=== PATIENT | male | born 1965 | race Caucasian/White ===

== ENCOUNTER 2016-08-19 18:19 | Emergency (ER) | payer BC ==
--- NOTE | 2016-08-19 21:56 | DIAGNOSTIC IMAGING REPORT ---
PROCEDURE: CT ABDOMEN/PELVIS W/O CONTRAST INDICATION: HEMATURIA, initial encounter TECHNIQUE: Noncontrast axial images were obtained of the entire abdomen and pelvis with sagittal and coronal reformations. COMPARISON: None. FINDINGS: ABDOMEN: Mild bibasilar scarring. Heart size is normal. Hepatomegaly (23.6 cm) with contour irregularity. There are a few 5 mm hypodense lesions, indeterminate. Mild splenomegaly (13.7 cm). Gallbladder, pancreas and adrenal glands are normal. Mild dilation of the right renal collecting system and ureter, possibly due to a recently passed calculus. Left kidney and ureter are unremarkable. Mild atherosclerosis of the aorta. Moderate stool. PELVIS: Normal appendix. Normal prostate and bladder. No inflammatory changes or free fluid. Mild degenerative changes of the spine IMPRESSION: 1. Mild dilation of the right renal collecting system and ureter, possibly a recently passed calculus. 2. Hepatosplenomegaly with liver contour irregularity suggestive of cirrhosis 3. Results discussed with Jaden Chávez All CT scans at this facility use dose modulation, iterative reconstruction, and/or weight-based dosing when appropriate to reduce radiation dose to as low as reasonably achievable.
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
--- NOTE | 2016-08-19 22:26 | ED ORDER SUMMARY ---
..... Patient: AUSTIN SAHNI OrderSheet [facility] VisitID: [id number] [place] [address] 51y, M Registration Date/Time: 08/19/2016 ORDER SHEET Weight: 136.0 kg (stated) Allergies: No Known Drug Allergy GENERAL ORDERS: UA-Culture if indicated Urgent (19:02 08/19/2016 EKoroleva P.A.-C) (Ack 19:05 NHouse ER Tech1) (20:27 JQuivey R.N.) CBC w Diff Urgent (19:44 08/19/2016 EKoroleva P.A.-C) (Ack 19:45 NHouse ER Tech1) (20:12 NHouse ER Tech1) CMP Urgent (19:44 08/19/2016 EKoroleva P.A.-C) (Ack 19:45 NHouse ER Tech1) (20:12 NHouse ER Tech1) CT Abd/Pel wo Cont Urgent (21:08 08/19/2016 EKoroleva P.A.-C) (Ack 21:10 NHouse ER Tech1) (21:48 JQuivey R.N.) Culture, Urine (Urine, Clean Catch) Urgent (21:57 08/19/2016 EKoroleva P.A.-C) (22:06 NHouse ER Tech1) POC Glucose (22:24 08/19/2016 EKoroleva P.A.-C) (22:28 JQuivey R.N.) MEDICATION ORDERS: Regular Insulin Subcut 10 units (HIGH ALERT MEDICATION, NOW) (21:39 08/19/2016 EKoroleva P.A.-C) (Ack 21:41 JQuivey R.N.) (21:48 JQuivey R.N.) IV FLUIDS: IV NS : initial bolus 1000 mL (1000 mL/hr), then 1000 mL/hr for X1 (NOW); Dimitri (19:20 08/19/2016 EKoroleva P.A.-C) (19:39 JQuivey R.N.) Toradol IV 30 mg (NOW) (20:17 08/19/2016 Denver Fernandez) (Ack 20:18 JQuivey R.N.) (20:28 JQuivey R.N.) Dilaudid IV 1 mg (HIGH ALERT MEDICATION, NOW) (20:17 08/19/2016 Denver Fernandez) (Ack 20:18 JQuivey R.N.) (20:28 JQuivey R.N.) ORDER SHEET NOTES: [Electronically signed by Marek Suggs R.N. (22:45 08/19/2016)] [Electronically signed by Janell Chávez P.A.-C (22:49 08/19/2016)] [Electronically locked/signed by Marek Suggs R.N. (22:45 08/19/2016)]
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
--- NOTE | 2016-08-19 22:26 | ED ORDER SUMMARY ---
..... Patient: AUSTIN SAHNI OrderSheet [facility] VisitID: [id number] [place] [address] 51y, M Registration Date/Time: 08/19/2016 ORDER SHEET Weight: 136.0 kg (stated) Allergies: No Known Drug Allergy GENERAL ORDERS: UA-Culture if indicated Urgent (19:02 08/19/2016 EKoroleva P.A.-C) (Ack 19:05 NHouse ER Tech1) (20:27 JQuivey R.N.) CBC w Diff Urgent (19:44 08/19/2016 EKoroleva P.A.-C) (Ack 19:45 NHouse ER Tech1) (20:12 NHouse ER Tech1) CMP Urgent (19:44 08/19/2016 EKoroleva P.A.-C) (Ack 19:45 NHouse ER Tech1) (20:12 NHouse ER Tech1) CT Abd/Pel wo Cont Urgent (21:08 08/19/2016 EKoroleva P.A.-C) (Ack 21:10 NHouse ER Tech1) (21:48 JQuivey R.N.) Culture, Urine (Urine, Clean Catch) Urgent (21:57 08/19/2016 EKoroleva P.A.-C) (22:06 NHouse ER Tech1) POC Glucose (22:24 08/19/2016 EKoroleva P.A.-C) (22:28 JQuivey R.N.) MEDICATION ORDERS: Regular Insulin Subcut 10 units (HIGH ALERT MEDICATION, NOW) (21:39 08/19/2016 EKoroleva P.A.-C) (Ack 21:41 JQuivey R.N.) (21:48 JQuivey R.N.) IV FLUIDS: IV NS : initial bolus 1000 mL (1000 mL/hr), then 1000 mL/hr for X1 (NOW); Dimitri (19:20 08/19/2016 EKoroleva P.A.-C) (19:39 JQuivey R.N.) Toradol IV 30 mg (NOW) (20:17 08/19/2016 Denver Fernandez) (Ack 20:18 JQuivey R.N.) (20:28 JQuivey R.N.) Dilaudid IV 1 mg (HIGH ALERT MEDICATION, NOW) (20:17 08/19/2016 Denver Fernandez) (Ack 20:18 JQuivey R.N.) (20:28 JQuivey R.N.) ORDER SHEET NOTES: [Electronically signed by Marek Suggs R.N. (22:45 08/19/2016)] [Electronically signed by Janell Chávez P.A.-C (22:49 08/19/2016)] [Electronically locked/signed by Marek Suggs R.N. (22:45 08/19/2016)]
--- NOTE | 2016-08-19 22:49 | ED MAR SUMMARY ---
..... Medication Administration Record [facility] [address] [place] [address] Patient: AUSTIN SAHNI Visit ID: [id number] 51y, M Weight: 136.0 kg Height/Length: 72 in BMI: 40.7 ALLERGIES: No Known Drug Allergy Start 19:36 08/19/2016 Marek Suggs R.NBenjamin, Stop 22:37 08/19/2016 Marek Suggs R.N. Medication Administered: IV NS (SALINE), Dose: IV Fluids over 1 hour(s), Rate: 1000 mL/hr, Dispensed: 1000 mL bag, Site: #1 right hand. Medication Ordered: IV NS : initial bolus 1000 mL (1000 mL/hr), then 1000 mL/hr for X1 (NOW); Dimitri. Given 20:23 08/19/2016 Marek Suggs R.N. Medication Administered: DILAUDID [IVP] (HYDROMORPHONE HCL PF), Dose: 1 mg IVP over 2 minute(s), Site: #1 right hand. Medication Ordered: Dilaudid IV 1 mg (HIGH ALERT MEDICATION, NOW). Given 20:26 08/19/2016 Marek Suggs R.NBenjamin Medication Administered: TORADOL [IVP], Dose: 30 mg IVP over 2 minute(s), Site: #1 right hand. Medication Ordered: Toradol IV 30 mg (NOW). Given 21:48 08/19/2016 Marek Suggs R.NBenjamin Medication Administered: REGULAR INSULIN [SUBCUTANEOUS], Dose: 10 unit Subcutaneous. Medication Ordered: Regular Insulin Subcut 10 units (HIGH ALERT MEDICATION, NOW).
--- NOTE | 2016-08-19 22:49 | ED DISCHARGE INSTRUCTIONS ---
Patient: AUSTIN SAHNI General Instructions [facility] VisitID: [id number] [place] [address] 51y, M Registration Date/Time: 08/19/2016 Gross hematuria INSTRUCTIONS (urology: [phone] warm compressions to abd). Warnings: Further evaluation is necessary. Prescription Medications: Hydrocodone/APAP 7.5mg / 325mg: take 1 orally every 6 hours as needed for pain. Dispense twenty (20). No refill. Pyridium 100 mg: take 1 orally every 8 hours for 3 days as needed for urinary problems. Dispense ten (10). No refill. Substitution is permissible. Follow-up: Follow up with a specialist. ADDITIONAL INFORMATION Blood In The Urine Blood in the urine ("hematuria") has many possible causes. If it occurs after an injury (such as a car accident or fall), it is most often a sign of bruising to the kidney or bladder. Common medical causes of blood in the urine include urinary tract infection, kidney stone, inflammation, tumors, or certain other diseases of the kidney or bladder. Menstruation can cause blood to appear in the urine sample, although it is not coming from the urinary tract. If only a trace amount of blood is present, it will show up on the urine test, even though the urine may be yellow and not pink or red. This may occur with any of the above conditions, as well as heavy exercise or high fever. In this case, your doctor may want to repeat the urine test on another day. This will show if the blood is still present. If so, then other tests can be done to find out the cause. Home Care: If your urine does not appear bloody (pink, brown or red) then you do not need to restrict your activity in any way. If you can see blood in your urine, rest and avoid heavy exertion until your next exam. Do not use aspirin or anti-inflammatory medicine like ibuprofen (Motrin, Advil) or naproxen (Naprosyn, Aleve). These thin the blood and may increase bleeding. Follow Up with your doctor or as advised by our staff. If you were injured and had blood in your urine, you should have a repeat urine test in 1-2 days. Contact your doctor or return to this facility for this test. [NOTE: A radiologist will review any X-rays that were taken. We will notify you of any new findings that may affect your care.] Get Prompt Medical Attention if any of the following occur: Bright red blood or blood clots in the urine (if a new symptom) Weakness, dizziness or fainting New groin, abdominal or back pain Fever of 100.4F (38C) or higher, or as directed by your healthcare provider Repeated vomiting Bleeding from nose, gums or easy bruising Hydrocodone Bitartrate, Acetaminophen Oral tablet What is this medicine? ACETAMINOPHEN; HYDROCODONE (a set a MELISSA claudine fen; ina droe KOE done) is a pain reliever. It is used to treat mild to moderate pain. How should I use this medicine? Take this medicine by mouth. Swallow it with a full glass of water. Follow the directions on the prescription label. If the medicine upsets your stomach, take the medicine with food or milk. Do not take more than you are told to take. Talk to your regrinder regarding the use of this medicine in children. This medicine is not approved for use in children. What side effects may I notice from receiving this medicine? Side effects that you should report to your doctor or health career technology teacher as soon as possible: allergic reactions like skin rash, itching or hives, swelling of the face, lips, or tongue breathing problems confusion feeling faint or lightheaded, falls stomach pain yellowing of the eyes or skin Side effects that usually do not require medical attention (report to your doctor or health career technology teacher if they continue or are bothersome): nausea, vomiting stomach upset What may interact with this medicine? alcohol antihistamines isoniazid medicines for depression, anxiety, or psychotic disturbances medicines for sleep muscle relaxants naltrexone narcotic medicines (opiates) for pain phenobarbital ritonavir tramadol What if I miss a dose? If you miss a dose, take it as soon as you can. If it is almost time for your next dose, take only that dose. Do not take double or extra doses. Where should I keep my medicine? Keep out of the reach of children. This medicine can be abused. Keep your medicine in a safe place to protect it from theft. Do not share this medicine with anyone. Selling or giving away this medicine is dangerous and against the law. Store at room temperature between 15 and 30 degrees C (59 and 86 degrees F). Protect from light. Keep container tightly closed. Throw away any unused medicine after the expiration date. Discard unused medicine and used packaging carefully. Pets and children can be harmed if they find used or lost packages. What should I tell my health care provider before I take this medicine? They need to know if you have any of these conditions: brain tumor Crohn's disease, inflammatory bowel disease, or ulcerative colitis drink more than 3 alcohol-containing drinks per day drug abuse or addiction head injury heart or circulation problems kidney disease or problems going to the bathroom liver disease lung disease, asthma, or breathing problems an unusual or allergic reaction to acetaminophen, hydrocodone, other opioid analgesics, other medicines, foods, dyes, or preservatives or trying to get breast-feeding What should I watch for while using this medicine? Tell your doctor or health career technology teacher if your pain does not go away, if it gets worse, or if you have new or a different type of pain. You may develop tolerance to the medicine. Tolerance means that you will need a higher dose of the medicine for pain relief. Tolerance is normal and is expected if you take the medicine for a long time. Do not suddenly stop taking your medicine because you may develop a severe reaction. Your body becomes used to the medicine. This does NOT mean you are addicted. Addiction is a behavior related to getting and using a drug for a non-medical reason. If you have pain, you have a medical reason to take pain medicine. Your doctor will tell you how much medicine to take. If your doctor wants you to stop the medicine, the dose will be slowly lowered over time to avoid any side effects. You may get drowsy or dizzy when you first start taking the medicine or change doses. Do not drive, use machinery, or do anything that may be dangerous until you know how the medicine affects you. Stand or sit up slowly. There are different types of narcotic medicines (opiates) for pain. If you take more than one type at the same time, you may have more side effects. Give your health care provider a list of all medicines you use. Your doctor will tell you how much medicine to take. Do not take more medicine than directed. Call emergency for help if you have problems breathing. The medicine will cause constipation. Try to have a bowel movement at least every 2 to 3 days. If you do not have a bowel movement for 3 days, call your doctor or health career technology teacher. Too much acetaminophen can be very dangerous. Do not take Tylenol (acetaminophen) or medicines that contain acetaminophen with this medicine. Many non-prescription medicines contain acetaminophen. Always read the labels carefully. Phenazopyridine Hydrochloride Oral tablet What is this medicine? PHENAZOPYRIDINE (fen az oh PEER i denis) is a pain reliever. It is used to stop the pain, burning, or discomfort caused by infection or irritation of the urinary tract. This medicine is not an antibiotic. It will not cure a urinary tract infection. How should I use this medicine? Take this medicine by mouth with a glass of water. Follow the directions on the prescription label. Take after meals. Take your doses at regular intervals. Do not take your medicine more often than directed. Do not skip doses or stop your medicine early even if you feel better. Do not stop taking except on your doctor's advice. Talk to your regrinder regarding the use of this medicine in children. Special care may be needed. What side effects may I notice from receiving this medicine? Side effects that you should report to your doctor or health career technology teacher as soon as possible: allergic reactions like skin rash, itching or hives, swelling of the face, lips, or tongue blue or purple color of the skin difficulty breathing fever less urine unusual bleeding, bruising unusual tired, weak vomiting yellowing of the eyes or skin Side effects that usually do not require medical attention (report to your doctor or health career technology teacher if they continue or are bothersome): dark urine headache stomach upset What may interact with this medicine? Interactions are not expected. What if I miss a dose? If you miss a dose, take it as soon as you can. If it is almost time for your next dose, take only that dose. Do not take double or extra doses. Where should I keep my medicine? Keep out of the reach of children. Store at room temperature between 15 and 30 degrees C (59 and 86 degrees F). Protect from light and moisture. Throw away any unused medicine after the expiration date. What should I tell my health care provider before I take this medicine? They need to know if you have any of these conditions: [id number] dehydrogenase (G6PD) deficiency kidney disease an unusual or allergic reaction to phenazopyridine, other medicines, foods, dyes, or preservatives or trying to get breast-feeding What should I watch for while using this medicine? Tell your doctor or health career technology teacher if your symptoms do not improve or if they get worse. This medicine colors body fluids red. This effect is harmless and will go away after you are done taking the medicine. It will change urine to an dark orange or red color. The red color may stain clothing. Soft contact lenses may become permanently stained. It is best not to wear soft contact lenses while taking this medicine. If you are diabetic you may get a false positive result for sugar in your urine. Talk to your health care provider. You have been given the following additional information: Hematuria Hydrocodone Bitartrate, Acetaminophen Oral tablet Phenazopyridine Hydrochloride Oral tablet (Electronically signed by Janell Chávez P.A.-C 08/19/2016 22:49)
--- NOTE | 2016-08-19 22:49 | ED MAR SUMMARY ---
..... Medication Administration Record [facility] [address] [place] [address] Patient: AUSTIN SAHNI Visit ID: [id number] 51y, M Weight: 136.0 kg Height/Length: 72 in BMI: 40.7 ALLERGIES: No Known Drug Allergy Start 19:36 08/19/2016 Marek Suggs R.NBenjamin, Stop 22:37 08/19/2016 Marek Suggs R.N. Medication Administered: IV NS (SALINE), Dose: IV Fluids over 1 hour(s), Rate: 1000 mL/hr, Dispensed: 1000 mL bag, Site: #1 right hand. Medication Ordered: IV NS : initial bolus 1000 mL (1000 mL/hr), then 1000 mL/hr for X1 (NOW); Dimitri. Given 20:23 08/19/2016 Marek Suggs R.N. Medication Administered: DILAUDID [IVP] (HYDROMORPHONE HCL PF), Dose: 1 mg IVP over 2 minute(s), Site: #1 right hand. Medication Ordered: Dilaudid IV 1 mg (HIGH ALERT MEDICATION, NOW). Given 20:26 08/19/2016 Marek Suggs R.NBenjamin Medication Administered: TORADOL [IVP], Dose: 30 mg IVP over 2 minute(s), Site: #1 right hand. Medication Ordered: Toradol IV 30 mg (NOW). Given 21:48 08/19/2016 Marek Suggs R.NBenjamin Medication Administered: REGULAR INSULIN [SUBCUTANEOUS], Dose: 10 unit Subcutaneous. Medication Ordered: Regular Insulin Subcut 10 units (HIGH ALERT MEDICATION, NOW).
--- NOTE | 2016-08-19 22:49 | ED MED RECONCILIATION SUMMARY ---
Patient: AUSTIN SAHNI Medication Reconciliation Report [facility] VisitID: [id number] [address] [place] [address] 51y, M Registration Date/Time: 08/19/2016 Weight: 136.0 kg Height/Length: 72 in. BMI: 40.7 ALLERGIES: No Known Drug Allergy The patient's Home Medications are listed below: THE FOLLOWING MEDICATIONS NEED TO BE RECONCILED: Atorvastatin Calcium Oral (20 mg), daily Fenofibrate Oral (160 mg), daily Gabapentin Oral (300 mg) 1-4 caps, at bedtime Lisinopril Oral 40 mg, daily Naproxen Oral 500 mg, 2x a day Percocet Oral, PRN Tamsulosin HCl Oral 0.4 mg, daily The source(s) of the original Home Medication information: patient's pill bottles The following Medications were given to the patient in the Emergency Department: IV NS IV Fluids bolus 0, then 1000 mL/hr, administered: 08/19/2016 7:36:00 PM Dilaudid [IVP] IVP 1 mg, administered: 08/19/2016 8:23:00 PM Toradol [IVP] IVP 30 mg, administered: 08/19/2016 8:26:00 PM Regular Insulin [Subcutaneous] Subcutaneous 10 unit, administered: 08/19/2016 9:48:00 PM The following Medications were prescribed to the patient: Hydrocodone/APAP 7.5mg / 325mg: take 1 orally every 6 hours as needed for pain. Dispense twenty (20). No refill. -- Janell Chávez P.ASylvain Pyridium 100 mg: take 1 orally every 8 hours for 3 days as needed for urinary problems. Dispense ten (10). No refill. Substitution is permissible. -- Janell Chávez P.ABenjamin-Timothy
--- NOTE | 2016-08-19 22:49 | ED MED RECONCILIATION SUMMARY ---
Patient: AUSTIN SAHNI Medication Reconciliation Report [facility] VisitID: [id number] [address] [place] [address] 51y, M Registration Date/Time: 08/19/2016 Weight: 136.0 kg Height/Length: 72 in. BMI: 40.7 ALLERGIES: No Known Drug Allergy The patient's Home Medications are listed below: THE FOLLOWING MEDICATIONS NEED TO BE RECONCILED: Atorvastatin Calcium Oral (20 mg), daily Fenofibrate Oral (160 mg), daily Gabapentin Oral (300 mg) 1-4 caps, at bedtime Lisinopril Oral 40 mg, daily Naproxen Oral 500 mg, 2x a day Percocet Oral, PRN Tamsulosin HCl Oral 0.4 mg, daily The source(s) of the original Home Medication information: patient's pill bottles The following Medications were given to the patient in the Emergency Department: IV NS IV Fluids bolus 0, then 1000 mL/hr, administered: 08/19/2016 7:36:00 PM Dilaudid [IVP] IVP 1 mg, administered: 08/19/2016 8:23:00 PM Toradol [IVP] IVP 30 mg, administered: 08/19/2016 8:26:00 PM Regular Insulin [Subcutaneous] Subcutaneous 10 unit, administered: 08/19/2016 9:48:00 PM The following Medications were prescribed to the patient: Hydrocodone/APAP 7.5mg / 325mg: take 1 orally every 6 hours as needed for pain. Dispense twenty (20). No refill. -- Janell Chávez P.ASylvain Pyridium 100 mg: take 1 orally every 8 hours for 3 days as needed for urinary problems. Dispense ten (10). No refill. Substitution is permissible. -- Janell Chávez P.ABenjamin-Timothy
--- NOTE | 2016-08-19 22:49 | ED DISCHARGE INSTRUCTIONS ---
Patient: AUSTIN SAHNI General Instructions [facility] VisitID: [id number] [place] [address] 51y, M Registration Date/Time: 08/19/2016 Gross hematuria INSTRUCTIONS (urology: [phone] warm compressions to abd). Warnings: Further evaluation is necessary. Prescription Medications: Hydrocodone/APAP 7.5mg / 325mg: take 1 orally every 6 hours as needed for pain. Dispense twenty (20). No refill. Pyridium 100 mg: take 1 orally every 8 hours for 3 days as needed for urinary problems. Dispense ten (10). No refill. Substitution is permissible. Follow-up: Follow up with a specialist. ADDITIONAL INFORMATION Blood In The Urine Blood in the urine ("hematuria") has many possible causes. If it occurs after an injury (such as a car accident or fall), it is most often a sign of bruising to the kidney or bladder. Common medical causes of blood in the urine include urinary tract infection, kidney stone, inflammation, tumors, or certain other diseases of the kidney or bladder. Menstruation can cause blood to appear in the urine sample, although it is not coming from the urinary tract. If only a trace amount of blood is present, it will show up on the urine test, even though the urine may be yellow and not pink or red. This may occur with any of the above conditions, as well as heavy exercise or high fever. In this case, your doctor may want to repeat the urine test on another day. This will show if the blood is still present. If so, then other tests can be done to find out the cause. Home Care: If your urine does not appear bloody (pink, brown or red) then you do not need to restrict your activity in any way. If you can see blood in your urine, rest and avoid heavy exertion until your next exam. Do not use aspirin or anti-inflammatory medicine like ibuprofen (Motrin, Advil) or naproxen (Naprosyn, Aleve). These thin the blood and may increase bleeding. Follow Up with your doctor or as advised by our staff. If you were injured and had blood in your urine, you should have a repeat urine test in 1-2 days. Contact your doctor or return to this facility for this test. [NOTE: A radiologist will review any X-rays that were taken. We will notify you of any new findings that may affect your care.] Get Prompt Medical Attention if any of the following occur: Bright red blood or blood clots in the urine (if a new symptom) Weakness, dizziness or fainting New groin, abdominal or back pain Fever of 100.4F (38C) or higher, or as directed by your healthcare provider Repeated vomiting Bleeding from nose, gums or easy bruising Hydrocodone Bitartrate, Acetaminophen Oral tablet What is this medicine? ACETAMINOPHEN; HYDROCODONE (a set a MELISSA claudine fen; ina droe KOE done) is a pain reliever. It is used to treat mild to moderate pain. How should I use this medicine? Take this medicine by mouth. Swallow it with a full glass of water. Follow the directions on the prescription label. If the medicine upsets your stomach, take the medicine with food or milk. Do not take more than you are told to take. Talk to your clam picker regarding the use of this medicine in children. This medicine is not approved for use in children. What side effects may I notice from receiving this medicine? Side effects that you should report to your doctor or health career development facilitator as soon as possible: allergic reactions like skin rash, itching or hives, swelling of the face, lips, or tongue breathing problems confusion feeling faint or lightheaded, falls stomach pain yellowing of the eyes or skin Side effects that usually do not require medical attention (report to your doctor or health career development facilitator if they continue or are bothersome): nausea, vomiting stomach upset What may interact with this medicine? alcohol antihistamines isoniazid medicines for depression, anxiety, or psychotic disturbances medicines for sleep muscle relaxants naltrexone narcotic medicines (opiates) for pain phenobarbital ritonavir tramadol What if I miss a dose? If you miss a dose, take it as soon as you can. If it is almost time for your next dose, take only that dose. Do not take double or extra doses. Where should I keep my medicine? Keep out of the reach of children. This medicine can be abused. Keep your medicine in a safe place to protect it from theft. Do not share this medicine with anyone. Selling or giving away this medicine is dangerous and against the law. Store at room temperature between 15 and 30 degrees C (59 and 86 degrees F). Protect from light. Keep container tightly closed. Throw away any unused medicine after the expiration date. Discard unused medicine and used packaging carefully. Pets and children can be harmed if they find used or lost packages. What should I tell my health care provider before I take this medicine? They need to know if you have any of these conditions: brain tumor Crohn's disease, inflammatory bowel disease, or ulcerative colitis drink more than 3 alcohol-containing drinks per day drug abuse or addiction head injury heart or circulation problems kidney disease or problems going to the bathroom liver disease lung disease, asthma, or breathing problems an unusual or allergic reaction to acetaminophen, hydrocodone, other opioid analgesics, other medicines, foods, dyes, or preservatives or trying to get breast-feeding What should I watch for while using this medicine? Tell your doctor or health career development facilitator if your pain does not go away, if it gets worse, or if you have new or a different type of pain. You may develop tolerance to the medicine. Tolerance means that you will need a higher dose of the medicine for pain relief. Tolerance is normal and is expected if you take the medicine for a long time. Do not suddenly stop taking your medicine because you may develop a severe reaction. Your body becomes used to the medicine. This does NOT mean you are addicted. Addiction is a behavior related to getting and using a drug for a non-medical reason. If you have pain, you have a medical reason to take pain medicine. Your doctor will tell you how much medicine to take. If your doctor wants you to stop the medicine, the dose will be slowly lowered over time to avoid any side effects. You may get drowsy or dizzy when you first start taking the medicine or change doses. Do not drive, use machinery, or do anything that may be dangerous until you know how the medicine affects you. Stand or sit up slowly. There are different types of narcotic medicines (opiates) for pain. If you take more than one type at the same time, you may have more side effects. Give your health care provider a list of all medicines you use. Your doctor will tell you how much medicine to take. Do not take more medicine than directed. Call emergency for help if you have problems breathing. The medicine will cause constipation. Try to have a bowel movement at least every 2 to 3 days. If you do not have a bowel movement for 3 days, call your doctor or health career development facilitator. Too much acetaminophen can be very dangerous. Do not take Tylenol (acetaminophen) or medicines that contain acetaminophen with this medicine. Many non-prescription medicines contain acetaminophen. Always read the labels carefully. Phenazopyridine Hydrochloride Oral tablet What is this medicine? PHENAZOPYRIDINE (fen az oh PEER i denis) is a pain reliever. It is used to stop the pain, burning, or discomfort caused by infection or irritation of the urinary tract. This medicine is not an antibiotic. It will not cure a urinary tract infection. How should I use this medicine? Take this medicine by mouth with a glass of water. Follow the directions on the prescription label. Take after meals. Take your doses at regular intervals. Do not take your medicine more often than directed. Do not skip doses or stop your medicine early even if you feel better. Do not stop taking except on your doctor's advice. Talk to your clam picker regarding the use of this medicine in children. Special care may be needed. What side effects may I notice from receiving this medicine? Side effects that you should report to your doctor or health career development facilitator as soon as possible: allergic reactions like skin rash, itching or hives, swelling of the face, lips, or tongue blue or purple color of the skin difficulty breathing fever less urine unusual bleeding, bruising unusual tired, weak vomiting yellowing of the eyes or skin Side effects that usually do not require medical attention (report to your doctor or health career development facilitator if they continue or are bothersome): dark urine headache stomach upset What may interact with this medicine? Interactions are not expected. What if I miss a dose? If you miss a dose, take it as soon as you can. If it is almost time for your next dose, take only that dose. Do not take double or extra doses. Where should I keep my medicine? Keep out of the reach of children. Store at room temperature between 15 and 30 degrees C (59 and 86 degrees F). Protect from light and moisture. Throw away any unused medicine after the expiration date. What should I tell my health care provider before I take this medicine? They need to know if you have any of these conditions: [id number] dehydrogenase (G6PD) deficiency kidney disease an unusual or allergic reaction to phenazopyridine, other medicines, foods, dyes, or preservatives or trying to get breast-feeding What should I watch for while using this medicine? Tell your doctor or health career development facilitator if your symptoms do not improve or if they get worse. This medicine colors body fluids red. This effect is harmless and will go away after you are done taking the medicine. It will change urine to an dark orange or red color. The red color may stain clothing. Soft contact lenses may become permanently stained. It is best not to wear soft contact lenses while taking this medicine. If you are diabetic you may get a false positive result for sugar in your urine. Talk to your health care provider. You have been given the following additional information: Hematuria Hydrocodone Bitartrate, Acetaminophen Oral tablet Phenazopyridine Hydrochloride Oral tablet (Electronically signed by Janell Chávez P.A.-C 08/19/2016 22:49)
== END 2016-08-19 22:41 | disposition home or self-care (01) ==
LOC: ED SRH 18:19
DX: R31.0 Gross hematuria (principal); I10 Essential (primary) hypertension; E11.9 Type 2 diabetes mellitus without complications; Z79.1 Long term (current) use of non-steroidal anti-inflammatories (NSAID); Z79.899 Other long term (current) drug therapy
CPT/HCPCS: 90004; 90100; 90469; 95059

== ENCOUNTER 2016-11-03 14:59 | Emergency (ER) | payer BC ==
--- NOTE | 2016-11-03 16:10 | DIAGNOSTIC IMAGING REPORT ---
PROCEDURE: CT ABDOMEN/PELVIS W/O CONTRAST INDICATION: HEMATURIA TECHNIQUE: Noncontrast axial images were obtained of the entire abdomen and pelvis with sagittal and coronal reformations. COMPARISON: CT abdomen/pelvis 08/19/2016. FINDINGS: ABDOMEN: Lung base are clear. Normal heart size. Liver measures 23 cm with minor contour irregularity. Spleen measures 14 cm. Gallbladder, pancreas and adrenal glands are normal. Mild right hydroureteronephrosis with minor progression. Normal left kidney. Mild atherosclerosis of the aorta. PELVIS: Distended bladder. Low density 10 x 5.8 cm right bladder mass with a few faint peripheral punctate calcifications and adjacent paired dense arterial suggestive of clot. Normal prostate. Normal appendix. No free fluid or inflammatory changes. Mild degenerative changes of the spine. IMPRESSION: 1. 10 x 5.8 cm heterogeneous low-density right bladder mass with punctate peripheral calcifications. This may represent tiny bladder calculi with large hematoma versus bladder mass. Recommend urology consultation 2. Secondary mild right hydroureteronephrosis 3. Hepatosplenomegaly 4. Results discussed with Dr. Hope All CT scans at this facility use dose modulation, iterative reconstruction, and/or weight-based dosing when appropriate to reduce radiation dose to as low as reasonably achievable.
--- NOTE | 2016-11-03 16:23 | ED ORDER SUMMARY ---
..... Patient: AUSTIN SAHNI OrderSheet [facility] VisitID: [id number] [place] [address] 51y, M Registration Date/Time: 11/03/2016 ORDER SHEET Weight: 131.5 kg (stated) Allergies: No Known Drug Allergy GENERAL ORDERS: CT Abd/Pel wo Cont Urgent (15:11/03/2016 [facility]) (Ack 15:10 KHoerner) (15:29 KKnebel R.N.) CBC w Diff Urgent (15:11/03/2016 [facility]) (Ack 15:10 KHoerner) (15:29 KKnebel R.N.) CMP Urgent (15:11/03/2016 [facility]) (Ack 15:10 KHoerner) (15:29 KKnebel R.N.) UA-Culture if indicated Urgent (15:11/03/2016 [facility]) (Ack 15:10 KHoerner) (16:44 JBoardley R.N.) Amylase Urgent (15:11/03/2016 [facility]) (Ack 15:10 KHoerner) (15:29 KKnebel R.N.) Lipase Urgent (15:11/03/2016 [facility]) (Ack 15:10 KHoerner) (15:29 KKnebel R.N.) PT with INR Urgent (15:11/03/2016 [facility]) (Ack 15:10 KHoerner) (15:29 KKnebel R.N.) Urine Drug Screen Urgent (15:11/03/2016 [facility]) (Ack 15:10 KHoerner) (16:44 JBoardley R.N.) Ferrara Catheter (16:16 11/03/2016 JBoardley R.N. verbal order read back to [facility]) (16:16 JBoardley R.N.) MEDICATION ORDERS: IV FLUIDS: IV NS : initial bolus 1000 mL (1000 mL/hr), then 500 mL/hr for X2 (NOW) (15:08 11/03/2016 [facility]) (15:22 FRANTZneabel R.N.) Zofran IV 4 mg (NOW) (15:08 11/03/2016 [facility]) (15:23 FRANTZneabel R.N.) Toradol IV 30 mg (NOW) (15:08 11/03/2016 [facility]) (15:24 FRANTZneabel R.N.) Dilaudid IV 1 mg (HIGH ALERT MEDICATION, NOW) (15:13 11/03/2016 [facility]) (15:23 FRANTZnebel R.N.) ORDER SHEET NOTES: [Electronically signed by Anitha Hanson R.N. (19:33 11/03/2016)] [Electronically signed by Everett Hope DO (20:52 11/03/2016)] [Electronically locked/signed by Anitha Hanson R.N. (19:33 11/03/2016)]
--- NOTE | 2016-11-03 16:23 | ED ORDER SUMMARY ---
..... Patient: AUSTIN SAHNI OrderSheet [facility] VisitID: [id number] [place] [address] 51y, M Registration Date/Time: 11/03/2016 ORDER SHEET Weight: 131.5 kg (stated) Allergies: No Known Drug Allergy GENERAL ORDERS: CT Abd/Pel wo Cont Urgent (15:11/03/2016 [facility]) (Ack 15:10 KHoerner) (15:29 KKnebel R.N.) CBC w Diff Urgent (15:11/03/2016 [facility]) (Ack 15:10 KHoerner) (15:29 KKnebel R.N.) CMP Urgent (15:11/03/2016 [facility]) (Ack 15:10 KHoerner) (15:29 KKnebel R.N.) UA-Culture if indicated Urgent (15:11/03/2016 [facility]) (Ack 15:10 KHoerner) (16:44 JBoardley R.N.) Amylase Urgent (15:11/03/2016 [facility]) (Ack 15:10 KHoerner) (15:29 KKnebel R.N.) Lipase Urgent (15:11/03/2016 [facility]) (Ack 15:10 KHoerner) (15:29 KKnebel R.N.) PT with INR Urgent (15:11/03/2016 [facility]) (Ack 15:10 KHoerner) (15:29 KKnebel R.N.) Urine Drug Screen Urgent (15:11/03/2016 [facility]) (Ack 15:10 KHoerner) (16:44 JBoardley R.N.) Ferrara Catheter (16:16 11/03/2016 JBoardley R.N. verbal order read back to [facility]) (16:16 JBoardley R.N.) MEDICATION ORDERS: IV FLUIDS: IV NS : initial bolus 1000 mL (1000 mL/hr), then 500 mL/hr for X2 (NOW) (15:08 11/03/2016 [facility]) (15:22 FRANTZneabel R.N.) Zofran IV 4 mg (NOW) (15:08 11/03/2016 [facility]) (15:23 FRANTZneabel R.N.) Toradol IV 30 mg (NOW) (15:08 11/03/2016 [facility]) (15:24 FRANTZneabel R.N.) Dilaudid IV 1 mg (HIGH ALERT MEDICATION, NOW) (15:13 11/03/2016 [facility]) (15:23 FRANTZnebel R.N.) ORDER SHEET NOTES: [Electronically signed by Anitha Hanson R.N. (19:33 11/03/2016)] [Electronically signed by Everett Hope DO (20:52 11/03/2016)] [Electronically locked/signed by Anitha Hanson R.N. (19:33 11/03/2016)]
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
--- NOTE | 2016-11-03 20:52 | ED DISCHARGE INSTRUCTIONS ---
Patient: AUSTIN SAHNI General Instructions [facility] VisitID: [id number] [place] [address] 51y, M Registration Date/Time: 11/03/2016 Acute suprapubic abdominal pain. (with bladder outlet obstruction and hematuria). Chronic, moderately well controlled type 2 diabetes with hyperglycemia. No coma. Abnormal liver function test: AST/SGOT, ALT/SGPT and alkaline phosphatase. Mild hyponatremia. INSTRUCTIONS Rest. Do not work for three days. Drink plenty of fluids. No alcohol until released. (Please continue to use the Ferrara catheter as directed - leg bag at night). Warnings: Further evaluation is necessary in order to recheck abnormal lab, obtain test results, conduct further tests and assess the possibility of serious illness. It is very important to follow up with a physician. SEDATIVE MEDICATION: You were given sedative medication during your visit. Do not drive or operate dangerous machinery. CONTROLLED SUBSTANCE WARNINGS. GENERAL WARNINGS: Return or contact your physician immediately if your condition worsens or changes unexpectedly, if not improving as expected, or if other problems arise. Your Current Medications: CONTINUE TAKING THE FOLLOWING MEDICATIONS: Atorvastatin Calcium Oral : Tablet 20 mg, daily. Fenofibrate Oral : Tablet 160 mg, daily. Gabapentin Oral : Capsule 300 mg, 1-4 caps at bedtime. HumaLOG Subcutaneous. Levemir Subcutaneous. Lisinopril Oral : 40 mg daily. Naproxen Oral : 500 mg 2x a day. Percocet Oral : PRN. Tamsulosin HCl Oral : 0.4 mg daily. Prescription Medications: Cipro 500 mg: take 1 tab orally every 12 hours for 10 days. Dispense twenty (20). No refills. Substitution is permissible. Oxycodone/APAP 5 mg/325 mg: take 1-2 tablets orally every 8 hours as needed for pain. Dispense ten (10). No refill. Follow-up: Follow up with a urologist AN APPOINTMENT HAS BEEN MADE FOR YOU WITH DR CUELLO (urology) - Address: [facility] [place] [address]; - ON NOVEMBER 10 AT 10:30 AM. Call for the next available appointment. Follow-up with: Tutu Munoz MD, [facility], , [address], , [place], [address]; Danie Youngblood MD, [facility], , [address], , [place], [address] Follow up Thursday. Reason for referral: An appointment has been made for you with Mr Kevin on 11/05 @ 1400 (2:00 pm). ADDITIONAL INFORMATION Abdominal Pain,Uncertain Cause [Male] Based on your visit today, the exact cause of your abdominalpain is not clear. Your exam and tests do not indicate a dangerous cause at this time. However, the signs of a serious problem may take more time to appear. Although your evaluation was reassuring today, sometimes early in the course of many conditions, exam and lab tests can appear normal. Therefore, it is important for you to watch for any new symptoms or worsening of your condition. Causes It may not be obvious what caused your symptoms. Pay attention to things that do seem to make your symptoms worse or better and discuss this with your doctor when you follow up. Diagnosis The evaluation of abdominal pain in the emergency department may onlyrequire an exam by the doctor or it may include blood, urine or imaging studies, depending on many factors. Sometimes exams and tests can identify a cause but in many cases, a clear cause is not found. Further testing at follow up visits may help to suggest a clear diagnosis. Home Care Rest as much as possible until your next exam. Try to avoid any medications (unless otherwise directed by your doctor), foods, activities, or other factors that you may have contributed to your symptoms. Try to eat foods that you know that you have tolerated well in the past. Certain diets may be recommended for some conditions that cause abdominal pain. However, since the cause of your symptoms may not be clear, discuss your diet more with your primary care provider or specialist for further recommendations. Eating several small meals per day as opposed to 2 or 3 larger meals may help. Monitor closely for anything that may make your symptoms worse or better. Pay close attention to symptoms below that may indicate worsening of your condition. Follow Up and Precautions See your doctoras instructed or sooneror if your symptoms are not improving.In some cases, you may need more testing. When to Seek Medical Attention Contact your doctor or see medical attention ifany of the following occur: Pain is becoming worse You are unable to take your medications due to excessive vomiting Swelling of the abdomen Fever of 100.4F (38C) or higher, or as directed by your health care provider Blood in vomit or bowel movements (dark red or black color) Jaundice (yellow color of eyes and skin) New onset of weakness, dizziness or fainting New onset of chest, arm, back, neck or jaw pain Ciprofloxacin Hydrochloride Oral tablet What is this medicine? CIPROFLOXACIN (sip ant FLOX a sin) is a quinolone antibiotic. It is used to treat certain kinds of bacterial infections. It will not work for colds, flu, or other viral infections. How should I use this medicine? Take this medicine by mouth with a glass of water. Follow the directions on the prescription label. Take your medicine at regular intervals. Do not take your medicine more often than directed. Take all of your medicine as directed even if you think your are better. Do not skip doses or stop your medicine early. You can take this medicine with food or on an empty stomach. It can be taken with a meal that contains dairy or calcium, but do not take it alone with a dairy product, like milk or yogurt or calcium-fortified juice. A special MedGuide will be given to you by the pharmacist with each prescription and refill. Be sure to read this information carefully each time. Talk to your project executive regarding the use of this medicine in children. Special care may be needed. What side effects may I notice from receiving this medicine? Side effects that you should report to your doctor or health lpn care manager as soon as possible: - allergic reactions like skin rash, itching or hives, swelling of the face, lips, or tongue - breathing problems - confusion, nightmares or hallucinations - feeling faint or lightheaded, falls - irregular heartbeat - joint, muscle or tendon pain or swelling - pain or trouble passing urine -persistent headache with or without blurred vision - redness, blistering, peeling or loosening of the skin, including inside the mouth - seizure - unusual pain, numbness, tingling, or weakness Side effects that usually do not require medical attention (report to your doctor or health lpn care manager if they continue or are bothersome): - diarrhea - nausea or stomach upset - white patches or sores in the mouth What may interact with this medicine? Do not take this medicine with any of the following medications: cisapride droperidol terfenadine tizanidine This medicine may also interact with the following medications: antacids caffeine cyclosporin didanosine (ddI) buffered tablets or powder medicines for diabetes medicines for inflammation like ibuprofen, naproxen methotrexate multivitamins omeprazole phenytoin probenecid sucralfate theophylline warfarin What if I miss a dose? If you miss a dose, take it as soon as you can. If it is almost time for your next dose, take only that dose. Do not take double or extra doses. Where should I keep my medicine? Keep out of the reach of children. Store at room temperature below 30 degrees C (86 degrees F). Keep container tightly closed. Throw away any unused medicine after the expiration date. What should I tell my health care provider before I take this medicine? They need to know if you have any of these conditions: -bone problems -cerebral disease -joint problems -irregular heartbeat -kidney disease -liver disease -myasthenia gravis -seizure disorder -tendon problems -an unusual or allergic reaction to ciprofloxacin, other antibiotics or medicines, foods, dyes, or preservatives - or trying to get -breast-feeding What should I watch for while using this medicine? Tell your doctor or health lpn care manager if your symptoms do not improve. Do not treat diarrhea with over the counter products. Contact your doctor if you have diarrhea that lasts more than 2 days or if it is severe and watery. You may get drowsy or dizzy. Do not drive, use machinery, or do anything that needs mental alertness until you know how this medicine affects you. Do not stand or sit up quickly, especially if you are an older patient. This reduces the risk of dizzy or fainting spells. This medicine can make you more sensitive to the sun. Keep out of the sun. If you cannot avoid being in the sun, wear protective clothing and use sunscreen. Do not use sun lamps or tanning beds/booths. Avoid antacids, aluminum, calcium, iron, magnesium, and zinc products for 6 hours before and 2 hours after taking a dose of this medicine. Oxycodone Hydrochloride, Acetaminophen Oral tablet What is this medicine? ACETAMINOPHEN; OXYCODONE (a set a MELISSA claudine fen; ox i KOE done) is a pain reliever. It is used to treat mild to moderate pain. How should I use this medicine? Take this medicine by mouth with a full glass of water. Follow the directions on the prescription label. Take your medicine at regular intervals. Do not take your medicine more often than directed. Talk to your project executive regarding the use of this medicine in children. Special care may be needed. Patients over 65 years old may have a stronger reaction and need a smaller dose. What side effects may I notice from receiving this medicine? Side effects that you should report to your doctor or health lpn care manager as soon as possible: allergic reactions like skin rash, itching or hives, swelling of the face, lips, or tongue breathing difficulties, wheezing confusion light headedness or fainting spells severe stomach pain yellowing of the skin or the whites of the eyes Side effects that usually do not require medical attention (report to your doctor or health lpn care manager if they continue or are bothersome): dizziness drowsiness nausea vomiting What may interact with this medicine? alcohol antihistamines barbiturates like amobarbital, butalbital, butabarbital, methohexital, pentobarbital, phenobarbital, thiopental, and secobarbital benztropine drugs for bladder problems like solifenacin, trospium, oxybutynin, tolterodine, hyoscyamine, and methscopolamine drugs for breathing problems like ipratropium and tiotropium drugs for certain stomach or intestine problems like propantheline, homatropine methylbromide, glycopyrrolate, atropine, belladonna, and dicyclomine general anesthetics like etomidate, ketamine, nitrous oxide, propofol, desflurane, enflurane, halothane, isoflurane, and sevoflurane medicines for depression, anxiety, or psychotic disturbances medicines for sleep muscle relaxants naltrexone narcotic medicines (opiates) for pain phenothiazines like perphenazine, thioridazine, chlorpromazine, mesoridazine, fluphenazine, prochlorperazine, promazine, and trifluoperazine scopolamine tramadol trihexyphenidyl What if I miss a dose? If you miss a dose, take it as soon as you can. If it is almost time for your next dose, take only that dose. Do not take double or extra doses. Where should I keep my medicine? Keep out of the reach of children. This medicine can be abused. Keep your medicine in a safe place to protect it from theft. Do not share this medicine with anyone. Selling or giving away this medicine is dangerous and against the law. Store at room temperature between 20 and 25 degrees C (68 and 77 degrees F). Keep container tightly closed. Protect from light. This medicine may cause accidental overdose and if it is taken by other adults, children, or pets. Flush any unused medicine down the toilet to reduce the chance of harm. Do not use the medicine after the expiration date. What should I tell my health care provider before I take this medicine? They need to know if you have any of these conditions: brain tumor Crohn's disease, inflammatory bowel disease, or ulcerative colitis drink more than 3 alcohol containing drinks per day drug abuse or addiction head injury heart or circulation problems kidney disease or problems going to the bathroom liver disease lung disease, asthma, or breathing problems an unusual or allergic reaction to acetaminophen, oxycodone, other opioid analgesics, other medicines, foods, dyes, or preservatives or trying to get breast-feeding What should I watch for while using this medicine? Tell your doctor or health lpn care manager if your pain does not go away, if it gets worse, or if you have new or a different type of pain. You may develop tolerance to the medicine. Tolerance means that you will need a higher dose of the medication for pain relief. Tolerance is normal and is expected if you take this medicine for a long time. Do not suddenly stop taking your medicine because you may develop a severe reaction. Your body becomes used to the medicine. This does NOT mean you are addicted. Addiction is a behavior related to getting and using a drug for a non-medical reason. If you have pain, you have a medical reason to take pain medicine. Your doctor will tell you how much medicine to take. If your doctor wants you to stop the medicine, the dose will be slowly lowered over time to avoid any side effects. You may get drowsy or dizzy. Do not drive, use machinery, or do anything that needs mental alertness until you know how this medicine affects you. Do not stand or sit up quickly, especially if you are an older patient. This reduces the risk of dizzy or fainting spells. Alcohol may interfere with the effect of this medicine. Avoid alcoholic drinks. There are different types of narcotic medicines (opiates) for pain. If you take more than one type at the same time, you may have more side effects. Give your health care provider a list of all medicines you use. Your doctor will tell you how much medicine to take. Do not take more medicine than directed. Call emergency for help if you have problems breathing. The medicine will cause constipation. Try to have a bowel movement at least every 2 to 3 days. If you do not have a bowel movement for 3 days, call your doctor or health lpn care manager. Do not take Tylenol (acetaminophen) or medicines that have acetaminophen with this medicine. Too much acetaminophen can be very dangerous. Many nonprescription medicines contain acetaminophen. Always read the labels carefully to avoid taking more acetaminophen. You have been given the following additional information: Abdominal Pain, Unknown Cause, (Male) Ciprofloxacin Hydrochloride Oral tablet Oxycodone Hydrochloride, Acetaminophen Oral tablet Rest. Do not work for three days. (Electronically signed by Everett Hope DO 11/03/2016 20:52)
--- NOTE | 2016-11-03 20:52 | ED DISCHARGE INSTRUCTIONS ---
Patient: AUSTIN SAHNI General Instructions [facility] VisitID: [id number] [place] [address] 51y, M Registration Date/Time: 11/03/2016 Acute suprapubic abdominal pain. (with bladder outlet obstruction and hematuria). Chronic, moderately well controlled type 2 diabetes with hyperglycemia. No coma. Abnormal liver function test: AST/SGOT, ALT/SGPT and alkaline phosphatase. Mild hyponatremia. INSTRUCTIONS Rest. Do not work for three days. Drink plenty of fluids. No alcohol until released. (Please continue to use the Ferrara catheter as directed - leg bag at night). Warnings: Further evaluation is necessary in order to recheck abnormal lab, obtain test results, conduct further tests and assess the possibility of serious illness. It is very important to follow up with a physician. SEDATIVE MEDICATION: You were given sedative medication during your visit. Do not drive or operate dangerous machinery. CONTROLLED SUBSTANCE WARNINGS. GENERAL WARNINGS: Return or contact your physician immediately if your condition worsens or changes unexpectedly, if not improving as expected, or if other problems arise. Your Current Medications: CONTINUE TAKING THE FOLLOWING MEDICATIONS: Atorvastatin Calcium Oral : Tablet 20 mg, daily. Fenofibrate Oral : Tablet 160 mg, daily. Gabapentin Oral : Capsule 300 mg, 1-4 caps at bedtime. HumaLOG Subcutaneous. Levemir Subcutaneous. Lisinopril Oral : 40 mg daily. Naproxen Oral : 500 mg 2x a day. Percocet Oral : PRN. Tamsulosin HCl Oral : 0.4 mg daily. Prescription Medications: Cipro 500 mg: take 1 tab orally every 12 hours for 10 days. Dispense twenty (20). No refills. Substitution is permissible. Oxycodone/APAP 5 mg/325 mg: take 1-2 tablets orally every 8 hours as needed for pain. Dispense ten (10). No refill. Follow-up: Follow up with a urologist AN APPOINTMENT HAS BEEN MADE FOR YOU WITH DR CUELLO (urology) - Address: [facility] [place] [address]; - ON NOVEMBER 10 AT 10:30 AM. Call for the next available appointment. Follow-up with: Tutu Munoz MD, [facility], , [address], , [place], [address]; Danie Youngblood MD, [facility], , [address], , [place], [address] Follow up Thursday. Reason for referral: An appointment has been made for you with Mr Kevin on 11/05 @ 1400 (2:00 pm). ADDITIONAL INFORMATION Abdominal Pain,Uncertain Cause [Male] Based on your visit today, the exact cause of your abdominalpain is not clear. Your exam and tests do not indicate a dangerous cause at this time. However, the signs of a serious problem may take more time to appear. Although your evaluation was reassuring today, sometimes early in the course of many conditions, exam and lab tests can appear normal. Therefore, it is important for you to watch for any new symptoms or worsening of your condition. Causes It may not be obvious what caused your symptoms. Pay attention to things that do seem to make your symptoms worse or better and discuss this with your doctor when you follow up. Diagnosis The evaluation of abdominal pain in the emergency department may onlyrequire an exam by the doctor or it may include blood, urine or imaging studies, depending on many factors. Sometimes exams and tests can identify a cause but in many cases, a clear cause is not found. Further testing at follow up visits may help to suggest a clear diagnosis. Home Care Rest as much as possible until your next exam. Try to avoid any medications (unless otherwise directed by your doctor), foods, activities, or other factors that you may have contributed to your symptoms. Try to eat foods that you know that you have tolerated well in the past. Certain diets may be recommended for some conditions that cause abdominal pain. However, since the cause of your symptoms may not be clear, discuss your diet more with your primary care provider or specialist for further recommendations. Eating several small meals per day as opposed to 2 or 3 larger meals may help. Monitor closely for anything that may make your symptoms worse or better. Pay close attention to symptoms below that may indicate worsening of your condition. Follow Up and Precautions See your doctoras instructed or sooneror if your symptoms are not improving.In some cases, you may need more testing. When to Seek Medical Attention Contact your doctor or see medical attention ifany of the following occur: Pain is becoming worse You are unable to take your medications due to excessive vomiting Swelling of the abdomen Fever of 100.4F (38C) or higher, or as directed by your health care provider Blood in vomit or bowel movements (dark red or black color) Jaundice (yellow color of eyes and skin) New onset of weakness, dizziness or fainting New onset of chest, arm, back, neck or jaw pain Ciprofloxacin Hydrochloride Oral tablet What is this medicine? CIPROFLOXACIN (sip ant FLOX a sin) is a quinolone antibiotic. It is used to treat certain kinds of bacterial infections. It will not work for colds, flu, or other viral infections. How should I use this medicine? Take this medicine by mouth with a glass of water. Follow the directions on the prescription label. Take your medicine at regular intervals. Do not take your medicine more often than directed. Take all of your medicine as directed even if you think your are better. Do not skip doses or stop your medicine early. You can take this medicine with food or on an empty stomach. It can be taken with a meal that contains dairy or calcium, but do not take it alone with a dairy product, like milk or yogurt or calcium-fortified juice. A special MedGuide will be given to you by the pharmacist with each prescription and refill. Be sure to read this information carefully each time. Talk to your premium note interest calculator clerk regarding the use of this medicine in children. Special care may be needed. What side effects may I notice from receiving this medicine? Side effects that you should report to your doctor or health senior caregiver as soon as possible: - allergic reactions like skin rash, itching or hives, swelling of the face, lips, or tongue - breathing problems - confusion, nightmares or hallucinations - feeling faint or lightheaded, falls - irregular heartbeat - joint, muscle or tendon pain or swelling - pain or trouble passing urine -persistent headache with or without blurred vision - redness, blistering, peeling or loosening of the skin, including inside the mouth - seizure - unusual pain, numbness, tingling, or weakness Side effects that usually do not require medical attention (report to your doctor or health senior caregiver if they continue or are bothersome): - diarrhea - nausea or stomach upset - white patches or sores in the mouth What may interact with this medicine? Do not take this medicine with any of the following medications: cisapride droperidol terfenadine tizanidine This medicine may also interact with the following medications: antacids caffeine cyclosporin didanosine (ddI) buffered tablets or powder medicines for diabetes medicines for inflammation like ibuprofen, naproxen methotrexate multivitamins omeprazole phenytoin probenecid sucralfate theophylline warfarin What if I miss a dose? If you miss a dose, take it as soon as you can. If it is almost time for your next dose, take only that dose. Do not take double or extra doses. Where should I keep my medicine? Keep out of the reach of children. Store at room temperature below 30 degrees C (86 degrees F). Keep container tightly closed. Throw away any unused medicine after the expiration date. What should I tell my health care provider before I take this medicine? They need to know if you have any of these conditions: -bone problems -cerebral disease -joint problems -irregular heartbeat -kidney disease -liver disease -myasthenia gravis -seizure disorder -tendon problems -an unusual or allergic reaction to ciprofloxacin, other antibiotics or medicines, foods, dyes, or preservatives - or trying to get -breast-feeding What should I watch for while using this medicine? Tell your doctor or health senior caregiver if your symptoms do not improve. Do not treat diarrhea with over the counter products. Contact your doctor if you have diarrhea that lasts more than 2 days or if it is severe and watery. You may get drowsy or dizzy. Do not drive, use machinery, or do anything that needs mental alertness until you know how this medicine affects you. Do not stand or sit up quickly, especially if you are an older patient. This reduces the risk of dizzy or fainting spells. This medicine can make you more sensitive to the sun. Keep out of the sun. If you cannot avoid being in the sun, wear protective clothing and use sunscreen. Do not use sun lamps or tanning beds/booths. Avoid antacids, aluminum, calcium, iron, magnesium, and zinc products for 6 hours before and 2 hours after taking a dose of this medicine. Oxycodone Hydrochloride, Acetaminophen Oral tablet What is this medicine? ACETAMINOPHEN; OXYCODONE (a set a MELISSA claudine fen; ox i KOE done) is a pain reliever. It is used to treat mild to moderate pain. How should I use this medicine? Take this medicine by mouth with a full glass of water. Follow the directions on the prescription label. Take your medicine at regular intervals. Do not take your medicine more often than directed. Talk to your premium note interest calculator clerk regarding the use of this medicine in children. Special care may be needed. Patients over 65 years old may have a stronger reaction and need a smaller dose. What side effects may I notice from receiving this medicine? Side effects that you should report to your doctor or health senior caregiver as soon as possible: allergic reactions like skin rash, itching or hives, swelling of the face, lips, or tongue breathing difficulties, wheezing confusion light headedness or fainting spells severe stomach pain yellowing of the skin or the whites of the eyes Side effects that usually do not require medical attention (report to your doctor or health senior caregiver if they continue or are bothersome): dizziness drowsiness nausea vomiting What may interact with this medicine? alcohol antihistamines barbiturates like amobarbital, butalbital, butabarbital, methohexital, pentobarbital, phenobarbital, thiopental, and secobarbital benztropine drugs for bladder problems like solifenacin, trospium, oxybutynin, tolterodine, hyoscyamine, and methscopolamine drugs for breathing problems like ipratropium and tiotropium drugs for certain stomach or intestine problems like propantheline, homatropine methylbromide, glycopyrrolate, atropine, belladonna, and dicyclomine general anesthetics like etomidate, ketamine, nitrous oxide, propofol, desflurane, enflurane, halothane, isoflurane, and sevoflurane medicines for depression, anxiety, or psychotic disturbances medicines for sleep muscle relaxants naltrexone narcotic medicines (opiates) for pain phenothiazines like perphenazine, thioridazine, chlorpromazine, mesoridazine, fluphenazine, prochlorperazine, promazine, and trifluoperazine scopolamine tramadol trihexyphenidyl What if I miss a dose? If you miss a dose, take it as soon as you can. If it is almost time for your next dose, take only that dose. Do not take double or extra doses. Where should I keep my medicine? Keep out of the reach of children. This medicine can be abused. Keep your medicine in a safe place to protect it from theft. Do not share this medicine with anyone. Selling or giving away this medicine is dangerous and against the law. Store at room temperature between 20 and 25 degrees C (68 and 77 degrees F). Keep container tightly closed. Protect from light. This medicine may cause accidental overdose and if it is taken by other adults, children, or pets. Flush any unused medicine down the toilet to reduce the chance of harm. Do not use the medicine after the expiration date. What should I tell my health care provider before I take this medicine? They need to know if you have any of these conditions: brain tumor Crohn's disease, inflammatory bowel disease, or ulcerative colitis drink more than 3 alcohol containing drinks per day drug abuse or addiction head injury heart or circulation problems kidney disease or problems going to the bathroom liver disease lung disease, asthma, or breathing problems an unusual or allergic reaction to acetaminophen, oxycodone, other opioid analgesics, other medicines, foods, dyes, or preservatives or trying to get breast-feeding What should I watch for while using this medicine? Tell your doctor or health senior caregiver if your pain does not go away, if it gets worse, or if you have new or a different type of pain. You may develop tolerance to the medicine. Tolerance means that you will need a higher dose of the medication for pain relief. Tolerance is normal and is expected if you take this medicine for a long time. Do not suddenly stop taking your medicine because you may develop a severe reaction. Your body becomes used to the medicine. This does NOT mean you are addicted. Addiction is a behavior related to getting and using a drug for a non-medical reason. If you have pain, you have a medical reason to take pain medicine. Your doctor will tell you how much medicine to take. If your doctor wants you to stop the medicine, the dose will be slowly lowered over time to avoid any side effects. You may get drowsy or dizzy. Do not drive, use machinery, or do anything that needs mental alertness until you know how this medicine affects you. Do not stand or sit up quickly, especially if you are an older patient. This reduces the risk of dizzy or fainting spells. Alcohol may interfere with the effect of this medicine. Avoid alcoholic drinks. There are different types of narcotic medicines (opiates) for pain. If you take more than one type at the same time, you may have more side effects. Give your health care provider a list of all medicines you use. Your doctor will tell you how much medicine to take. Do not take more medicine than directed. Call emergency for help if you have problems breathing. The medicine will cause constipation. Try to have a bowel movement at least every 2 to 3 days. If you do not have a bowel movement for 3 days, call your doctor or health senior caregiver. Do not take Tylenol (acetaminophen) or medicines that have acetaminophen with this medicine. Too much acetaminophen can be very dangerous. Many nonprescription medicines contain acetaminophen. Always read the labels carefully to avoid taking more acetaminophen. You have been given the following additional information: Abdominal Pain, Unknown Cause, (Male) Ciprofloxacin Hydrochloride Oral tablet Oxycodone Hydrochloride, Acetaminophen Oral tablet Rest. Do not work for three days. (Electronically signed by Everett Hope DO 11/03/2016 20:52)
--- NOTE | 2016-11-03 20:52 | ED MED RECONCILIATION SUMMARY ---
Patient: AUSTIN SAHNI Medication Reconciliation Report [facility] VisitID: [id number] [address] [place] [address] 51y, M Registration Date/Time: 11/03/2016 Weight: 131.5 kg Height/Length: 72 in. BMI: 39.4 ALLERGIES: No Known Drug Allergy The patient's Home Medications are listed below: CONTINUE TAKING THE FOLLOWING MEDICATIONS: Atorvastatin Calcium Oral (20 mg), daily Fenofibrate Oral (160 mg), daily Gabapentin Oral (300 mg) 1-4 caps, at bedtime HumaLOG Subcutaneous Levemir Subcutaneous Lisinopril Oral 40 mg, daily Naproxen Oral 500 mg, 2x a day Percocet Oral, PRN Tamsulosin HCl Oral 0.4 mg, daily The source(s) of the original Home Medication information: patient The following Medications were given to the patient in the Emergency Department: IV NS IV Fluids bolus 1000 mL over 2 minute(s), administered: 11/03/2016 3:12:00 PM Zofran [IVP] IVP 4 mg, administered: 11/03/2016 3:15:00 PM Dilaudid [IVP] IVP 1 mg, administered: 11/03/2016 3:18:00 PM Toradol [IVP] IVP 30 mg, administered: 11/03/2016 3:22:00 PM The following Medications were prescribed to the patient: Cipro 500 mg: take 1 tab orally every 12 hours for 10 days. Dispense twenty (20). No refills. Substitution is permissible. -- Everett Hope DO Oxycodone/APAP 5 mg/325 mg: take 1-2 tablets orally every 8 hours as needed for pain. Dispense ten (10). No refill. -- Everett Hope DO
--- NOTE | 2016-11-03 20:52 | ED MAR SUMMARY ---
..... Medication Administration Record [facility] [address] [place] [address] Patient: AUSTIN SAHNI Visit ID: [id number] 51y, M Weight: 131.5 kg Height/Length: 72 in BMI: 39.4 ALLERGIES: No Known Drug Allergy Start 15:12 11/03/2016 Anitha Hanson R.N. Medication Administered: IV NS (SALINE), Dose: IV Fluids, Bolus: 1000 mL over 2 minute(s), Dispensed: 1000 mL bag, Site: #1 left AC. Medication Ordered: IV NS : initial bolus 1000 mL (1000 mL/hr), then 500 mL/hr for X2 (NOW). Given 15:15 11/03/2016 Anitha Hanson R.N. Medication Administered: ZOFRAN [IVP] (ONDANSETRON HCL), Dose: 4 mg IVP over 2 minute(s), Site: #1 left AC. Medication Ordered: Zofran IV 4 mg (NOW). Given 15:18 11/03/2016 Anitha Hanson R.N. Medication Administered: DILAUDID [IVP] (HYDROMORPHONE HCL PF), Dose: 1 mg IVP over 2 minute(s), Site: #1 left AC. Medication Ordered: Dilaudid IV 1 mg (HIGH ALERT MEDICATION, NOW). Given 15:22 11/03/2016 Anitha Hanson R.N. Medication Administered: TORADOL [IVP], Dose: 30 mg IVP over 2 minute(s), Site: #1 left AC. Medication Ordered: Toradol IV 30 mg (NOW).
--- NOTE | 2016-11-03 20:52 | ED MED RECONCILIATION SUMMARY ---
Patient: AUSTIN SAHNI Medication Reconciliation Report [facility] VisitID: [id number] [address] [place] [address] 51y, M Registration Date/Time: 11/03/2016 Weight: 131.5 kg Height/Length: 72 in. BMI: 39.4 ALLERGIES: No Known Drug Allergy The patient's Home Medications are listed below: CONTINUE TAKING THE FOLLOWING MEDICATIONS: Atorvastatin Calcium Oral (20 mg), daily Fenofibrate Oral (160 mg), daily Gabapentin Oral (300 mg) 1-4 caps, at bedtime HumaLOG Subcutaneous Levemir Subcutaneous Lisinopril Oral 40 mg, daily Naproxen Oral 500 mg, 2x a day Percocet Oral, PRN Tamsulosin HCl Oral 0.4 mg, daily The source(s) of the original Home Medication information: patient The following Medications were given to the patient in the Emergency Department: IV NS IV Fluids bolus 1000 mL over 2 minute(s), administered: 11/03/2016 3:12:00 PM Zofran [IVP] IVP 4 mg, administered: 11/03/2016 3:15:00 PM Dilaudid [IVP] IVP 1 mg, administered: 11/03/2016 3:18:00 PM Toradol [IVP] IVP 30 mg, administered: 11/03/2016 3:22:00 PM The following Medications were prescribed to the patient: Cipro 500 mg: take 1 tab orally every 12 hours for 10 days. Dispense twenty (20). No refills. Substitution is permissible. -- Everett Hope DO Oxycodone/APAP 5 mg/325 mg: take 1-2 tablets orally every 8 hours as needed for pain. Dispense ten (10). No refill. -- Everett Hope DO
--- NOTE | 2016-11-03 20:52 | ED MAR SUMMARY ---
..... Medication Administration Record [facility] [address] [place] [address] Patient: AUSTIN SAHNI Visit ID: [id number] 51y, M Weight: 131.5 kg Height/Length: 72 in BMI: 39.4 ALLERGIES: No Known Drug Allergy Start 15:12 11/03/2016 Anitha Hanson R.N. Medication Administered: IV NS (SALINE), Dose: IV Fluids, Bolus: 1000 mL over 2 minute(s), Dispensed: 1000 mL bag, Site: #1 left AC. Medication Ordered: IV NS : initial bolus 1000 mL (1000 mL/hr), then 500 mL/hr for X2 (NOW). Given 15:15 11/03/2016 Anitha Hanson R.N. Medication Administered: ZOFRAN [IVP] (ONDANSETRON HCL), Dose: 4 mg IVP over 2 minute(s), Site: #1 left AC. Medication Ordered: Zofran IV 4 mg (NOW). Given 15:18 11/03/2016 Anitha Hanson R.N. Medication Administered: DILAUDID [IVP] (HYDROMORPHONE HCL PF), Dose: 1 mg IVP over 2 minute(s), Site: #1 left AC. Medication Ordered: Dilaudid IV 1 mg (HIGH ALERT MEDICATION, NOW). Given 15:22 11/03/2016 Anitha Hanson R.N. Medication Administered: TORADOL [IVP], Dose: 30 mg IVP over 2 minute(s), Site: #1 left AC. Medication Ordered: Toradol IV 30 mg (NOW).
== END 2016-11-03 17:09 | disposition home or self-care (01) ==
LOC: ED SRH 14:59
DX: N32.0 Bladder-neck obstruction (principal); R31.9 Hematuria, unspecified; R79.89 Other specified abnormal findings of blood chemistry; E87.1 Hypo-osmolality and hyponatremia; E11.65 Type 2 diabetes mellitus with hyperglycemia; R10.30 Lower abdominal pain, unspecified; I10 Essential (primary) hypertension; Z79.4 Long term (current) use of insulin; Z79.899 Other long term (current) drug therapy
CPT/HCPCS: 80170; 81240; 83475; 90004; 90100; 90469; 92235; 92530; 92760; 92761; 92762; 92763; 92764; 92765; 92766; 92767; 94060; 95059

== ENCOUNTER 2016-11-04 04:51 | Emergency (ER) | payer BC ==
--- NOTE | 2016-11-04 06:24 | ED NURSING NOTES ---
Clinical Report - Nurses [facility] [address] [place] [address] 11/04/2016 4:52 [id number] Triage time 04:58. Acuity: LEVEL 3. Chief Complaint: POTTER PROBLEM. --05:02 Bernabe Trivedi R.N. 04:58 11/04/16. BP: 132/78. HR: 78. RR: 22. O2 saturation: 100%. Temp: 97.5 F. Pain level now 03/19. --05:02 Bernabe Trivedi R.N. Weight: 131.5 kg stated. Height/Length: 72 inches Per Patient. BMI: 39.4. --05:01 Bernabe Trivedi R.N. Medications Atorvastatin Calcium Oral (Tablet 20 mg), daily. Fenofibrate Oral (Tablet 160 mg), daily. Gabapentin Oral (Capsule 300 mg) 1-4 caps, at bedtime. HumaLOG Subcutaneous. Levemir Subcutaneous. Lisinopril Oral 40 mg, daily. Naproxen Oral 500 mg, 2x a day. Percocet Oral, PRN. Tamsulosin HCl Oral 0.4 mg, daily. --05:00 Bernabe Trivedi R.N. Medication/allergy information source: the patient. --05:02 Bernabe Trivedi R.N. Allergies No Known Drug Allergy. --05:00 Bernabe Trivedi R.N. History Arrived by private vehicle. Historian: patient. Accompanied by family. This started just prior to arrival. ( Pt came in due to a clogged potter cath that was placed yesterday. Pt stated there has been a lot of blood come from the potter and that no urine has drained since yesterday. Pt is having pelvic pain.). 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 PAST MEDICAL HX: Immunizations: up-to-date. SOCIAL HX: Never smoker. No alcohol use or drug use. --05:02 Bernabe Trivedi R.N. PROBLEMS: Abdominal Pain. Abnormal Liver Function Test. Hyponatremia. Hematuria. Patellar Dislocation. Hypertension. Diabetes Mellitus. --05:00 Bernabe Trivedi R.N. UTI - Urinary Tract Infection [RuleOut]. --05:00 Bernabe Trivedi R.N. Interventions ID band on patient. To waiting room. --05:02 Bernabe Trivedi R.N. PHYSICAL ASSESSMENT GENERAL / NEURO / PSYCH: Alert. Oriented X 4. Appears in pain and anxious. HEENT: Mucous membranes are pink. RESPIRATORY: Respirations not labored. Breath sounds within normal limits. CVS: Normal heart rate and rhythm. Capillary refill less than 2 seconds. GI / : Abdomen soft and nontender. Bowel sounds within normal limits. ( Pt has a potter cath that was placed yesterday. Pt came in due to bleeding around the tip of the penis. There is blood in the potter and appears to be clotted. No scrotal edema or abnormalities are noted on the penis or the head of the penis.). SKIN: Skin is warm and dry. --05:05 Bernabe Trivedi R.N. NURSING PROGRESS NOTES Patient gowned. Two patient identifiers checked. Call light placed in reach. Side rails up x 1. Bed placed in lowest position. Brakes of bed on. --05:05 Bernabe Trivedi R.N. ( Normal saline with a 60cc syringe is being used to flush the potter. Allie CORBETT was able to get a few small clots out from the potter, but there was no drainage from the potter. Bladder scanner was 517.). --05:15 Bernabe Trivedi R.N. Potter catheter removed; catheter intact; bleeding and pain present (05:33). --05:33 Bernabe Trviedi R.N. 20 fr potter catheter placed. Reason for indwelling catheter: obstruction. During procedure hand hygiene observed and sterile equipment and aseptic technique used. Return of 700 mL red-colored bloody urine; attached to bedside drainage bag positioned below the bladder and secured with strap. He tolerated procedure well. --05:34 Bernabe Trivedi R.N. ( Pt was having pain after the placement of the cath, but with good urine return.). --06:09 Bernabe Tirvedi R.N. ( Pt has a urology appt on thursday.). --06:12 Bernabe Trivedi R.N. DISPOSITION / DISCHARGE Departure time: 06:34. Condition at departure: improved. ( Pt had improved pain and the potter was still flowing with bloody urine. Pt will keep is urology appt on Thursday.). No learning barriers present. Discharge instructions provided and reviewed with the patient. Patient verbalized understanding. Written instructions provided in Slovak. The patient was discharged by the physician. He was discharged home and accompanied by spouse. He left the Emergency Department ambulatory and via private vehicle. Spouse driving. WILFREDO COMA SCORE: [place] Coma Scale: 15- eyes open spontaneously (4); best verbal response- oriented x 4 (5); best motor response- obeys commands (6). --06:35 Bernabe Trivedi R.N. 06:32 11/04/16. BP: 131/75. HR: 75. RR: 17. O2 saturation: 100%. Pain level now 2/10. --06:35 Bernabe Trivedi R.N. Locked/Released at 11/04/2016 6:35 by Bernabe Trivedi R.N.
--- NOTE | 2016-11-04 06:24 | ED ORDER SUMMARY ---
..... Patient: AUSTIN SAHNI OrderSheet Located [facility] VisitID: [id number] [address] [place] [address] 51y, M Registration Date/Time: 11/04/2016 ORDER SHEET Weight: 131.5 kg (stated) Allergies: No Known Drug Allergy GENERAL ORDERS: UA-Culture if indicated Urgent (05:35 11/04/2016 Nika R.NBenjamin verbal order read back to Rio CERRATO) (5:35 TLewis R.N.) MEDICATION ORDERS: IV FLUIDS: ORDER SHEET NOTES: [Electronically signed by Bernabe Trivedi R.N. (06:35 11/04/2016)] [Electronically signed by Eleno Dumont MD (09:13 11/04/2016)] [Electronically locked/signed by Bernabe Trivedi R.N. (06:35 11/04/2016)]
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
--- NOTE | 2016-11-04 06:24 | ED ORDER SUMMARY ---
..... Patient: AUSTIN SAHNI OrderSheet [facility] VisitID: [id number] [address] [place] [address] 51y, M Registration Date/Time: 11/04/2016 ORDER SHEET Weight: 131.5 kg (stated) Allergies: No Known Drug Allergy GENERAL ORDERS: UA-Culture if indicated Urgent (05:35 11/04/2016 Nika R.NBenjamin verbal order read back to Rio CERRATO) (5:35 TLewis R.N.) MEDICATION ORDERS: IV FLUIDS: ORDER SHEET NOTES: [Electronically signed by Bernabe Trivedi R.N. (06:35 11/04/2016)] [Electronically signed by Eleno Dumont MD (09:13 11/04/2016)] [Electronically locked/signed by Bernabe Trivedi R.N. (06:35 11/04/2016)]
--- NOTE | 2016-11-04 06:24 | ED NURSING NOTES ---
Clinical Report - Nurses [facility] [address] [place] [address] 11/04/2016 4:52 [id number] Triage time 04:58. Acuity: LEVEL 3. Chief Complaint: POTTER PROBLEM. --05:02 Bernabe Trivedi R.N. 04:58 11/04/16. BP: 132/78. HR: 78. RR: 22. O2 saturation: 100%. Temp: 97.5 F. Pain level now 03/19. --05:02 Bernabe Trivedi R.N. Weight: 131.5 kg stated. Height/Length: 72 inches Per Patient. BMI: 39.4. --05:01 Bernabe Trivedi R.N. Medications Atorvastatin Calcium Oral (Tablet 20 mg), daily. Fenofibrate Oral (Tablet 160 mg), daily. Gabapentin Oral (Capsule 300 mg) 1-4 caps, at bedtime. HumaLOG Subcutaneous. Levemir Subcutaneous. Lisinopril Oral 40 mg, daily. Naproxen Oral 500 mg, 2x a day. Percocet Oral, PRN. Tamsulosin HCl Oral 0.4 mg, daily. --05:00 Bernabe Trivedi R.N. Medication/allergy information source: the patient. --05:02 Bernabe Trivedi R.N. Allergies No Known Drug Allergy. --05:00 Bernabe Trivedi R.N. History Arrived by private vehicle. Historian: patient. Accompanied by family. This started just prior to arrival. ( Pt came in due to a clogged potter cath that was placed yesterday. Pt stated there has been a lot of blood come from the potter and that no urine has drained since yesterday. Pt is having pelvic pain.). Treatment [employer]: Seen within the last 30 days in the ED; seen for similar symptoms; treatment- pain medication. PAST MEDICAL HX: Immunizations: up-to-date. SOCIAL HX: Never smoker. No alcohol use or drug use. --05:02 Bernabe Trivedi R.N. PROBLEMS: Abdominal Pain. Abnormal Liver Function Test. Hyponatremia. Hematuria. Patellar Dislocation. Hypertension. Diabetes Mellitus. --05:00 Bernabe Trivedi R.N. UTI - Urinary Tract Infection [RuleOut]. --05:00 Bernabe Trivedi R.N. Interventions ID band on patient. To waiting room. --05:02 Bernabe Trivedi R.N. PHYSICAL ASSESSMENT GENERAL / NEURO / PSYCH: Alert. Oriented X 4. Appears in pain and anxious. HEENT: Mucous membranes are pink. RESPIRATORY: Respirations not labored. Breath sounds within normal limits. CVS: Normal heart rate and rhythm. Capillary refill less than 2 seconds. GI / : Abdomen soft and nontender. Bowel sounds within normal limits. ( Pt has a potter cath that was placed yesterday. Pt came in due to bleeding around the tip of the penis. There is blood in the potter and appears to be clotted. No scrotal edema or abnormalities are noted on the penis or the head of the penis.). SKIN: Skin is warm and dry. --05:05 Bernabe Trivedi R.N. NURSING PROGRESS NOTES Patient gowned. Two patient identifiers checked. Call light placed in reach. Side rails up x 1. Bed placed in lowest position. Brakes of bed on. --05:05 Bernabe Trivedi R.N. ( Normal saline with a 60cc syringe is being used to flush the potter. Allie CORBETT was able to get a few small clots out from the potter, but there was no drainage from the potter. Bladder scanner was 517.). --05:15 Bernabe Trivedi R.N. Potter catheter removed; catheter intact; bleeding and pain present (05:33). --05:33 Bernabe Trivedi R.N. 20 fr potter catheter placed. Reason for indwelling catheter: obstruction. During procedure hand hygiene observed and sterile equipment and aseptic technique used. Return of 700 mL red-colored bloody urine; attached to bedside drainage bag positioned below the bladder and secured with strap. He tolerated procedure well. --05:34 Bernabe Trivedi R.N. ( Pt was having pain after the placement of the cath, but with good urine return.). --06:09 Bernabe Trivedi R.N. ( Pt has a urology appt on thursday.). --06:12 Bernabe Trivedi R.N. DISPOSITION / DISCHARGE Departure time: 06:34. Condition at departure: improved. ( Pt had improved pain and the potter was still flowing with bloody urine. Pt will keep is urology appt on Thursday.). No learning barriers present. Discharge instructions provided and reviewed with the patient. Patient verbalized understanding. Written instructions provided in Ethiopian. The patient was discharged by the physician. He was discharged home and accompanied by spouse. He left the Emergency Department ambulatory and via private vehicle. Spouse driving. WILFREDO COMA SCORE: [place] Coma Scale: 15- eyes open spontaneously (4); best verbal response- oriented x 4 (5); best motor response- obeys commands (6). --06:35 Bernabe Trivedi R.N. 06:32 11/04/16. BP: 131/75. HR: 75. RR: 17. O2 saturation: 100%. Pain level now 2/10. --06:35 Bernabe Trivedi R.N. Locked/Released at 11/04/2016 6:35 by Bernabe Trivedi R.N.
--- NOTE | 2016-11-04 09:13 | ED MAR SUMMARY ---
..... Medication Administration Record [facility] [address] [place], [place] [id number] Patient: AUSTIN SAHNI Visit ID: [id number] 51y, M Weight: 131.5 kg Height/Length: 72 in BMI: 39.4 ALLERGIES: No Known Drug Allergy
--- NOTE | 2016-11-04 09:13 | ED MED RECONCILIATION SUMMARY ---
Patient: AUSTIN SAHNI Medication Reconciliation Report [facility] VisitID: [id number] [address] [place] [address] 51y, M Registration Date/Time: 11/04/2016 Weight: 131.5 kg Height/Length: 72 in. BMI: 39.4 ALLERGIES: No Known Drug Allergy The patient's Home Medications are listed below: CONTINUE TAKING THE FOLLOWING MEDICATIONS: Atorvastatin Calcium Oral (20 mg), daily Cipro Oral Fenofibrate Oral (160 mg), daily Gabapentin Oral (300 mg) 1-4 caps, at bedtime HumaLOG Subcutaneous Levemir Subcutaneous Lisinopril Oral 40 mg, daily Naproxen Oral 500 mg, 2x a day Percocet Oral, PRN Tamsulosin HCl Oral 0.4 mg, daily The source(s) of the original Home Medication information: patient The following Medications were given to the patient in the Emergency Department: None. The following Medications were prescribed to the patient: None.
--- NOTE | 2016-11-04 09:13 | ED MED RECONCILIATION SUMMARY ---
Patient: AUSTIN SAHNI Medication Reconciliation Report [facility] VisitID: [id number] [address] [place] [address] 51y, M Registration Date/Time: 11/04/2016 Weight: 131.5 kg Height/Length: 72 in. BMI: 39.4 ALLERGIES: No Known Drug Allergy The patient's Home Medications are listed below: CONTINUE TAKING THE FOLLOWING MEDICATIONS: Atorvastatin Calcium Oral (20 mg), daily Cipro Oral Fenofibrate Oral (160 mg), daily Gabapentin Oral (300 mg) 1-4 caps, at bedtime HumaLOG Subcutaneous Levemir Subcutaneous Lisinopril Oral 40 mg, daily Naproxen Oral 500 mg, 2x a day Percocet Oral, PRN Tamsulosin HCl Oral 0.4 mg, daily The source(s) of the original Home Medication information: patient The following Medications were given to the patient in the Emergency Department: None. The following Medications were prescribed to the patient: None.
--- NOTE | 2016-11-04 09:13 | ED DISCHARGE INSTRUCTIONS ---
Patient: AUSTIN SAHNI General Instructions [facility] VisitID: [id number] [place] [address] 51y, M Registration Date/Time: 11/04/2016 Gross hematuria Acute urinary tract infection. Urinary retention. Ferrara catheter replacement INSTRUCTIONS No driving or operating machinery while taking medication. Rest. Drink plenty of fluids. Warnings: Further evaluation is necessary. GENERAL WARNINGS: Return or contact your physician immediately if your condition worsens or changes unexpectedly, if not improving as expected, or if other problems arise. Your Current Medications: CONTINUE TAKING THE FOLLOWING MEDICATIONS: Atorvastatin Calcium Oral : Tablet 20 mg, daily. Cipro Oral. Fenofibrate Oral : Tablet 160 mg, daily. Gabapentin Oral : Capsule 300 mg, 1-4 caps at bedtime. HumaLOG Subcutaneous. Levemir Subcutaneous. Lisinopril Oral : 40 mg daily. Naproxen Oral : 500 mg 2x a day. Percocet Oral : PRN. Tamsulosin HCl Oral : 0.4 mg daily. Follow-up: Follow up with a urologist Dr. Wray as scheduled. Understanding of the discharge instructions verbalized by patient. ADDITIONAL INFORMATION Bladder Infection,Male (Adult) A bladder infection ("cystitis" or "UTI") usually causes a constant urge to urinate, and a burning when passing urine. Urine may be cloudy, smelly or dark. There may be also be pain in the lower abdomen. Cystitis in males is not common. It may be caused by a partial blockage in the urinary system that keeps the bladder from emptying completely. This is most often related to an enlarged prostate gland. Home Care: Drink lots of fluids (at least 6-8 glasses a day). This will flush the bacteria out of your bladder. Avoid sexual intercourse until your symptoms are gone. Avoid caffeine, alcohol, and spicy foods. They could irritate the bladder. A bladder infection is treated with antibiotics. You may also be given Pyridium (generic - phenazopyridine) to reduce burning with urination. This will cause urine to become a bright orange color, which can stain clothing. Follow Up with your doctor or this facility if ALL symptoms have not cleared within five days. It is important to keep your follow up appointment to discuss with your doctor the need for further tests of the urinary tract. Get Prompt Medical Attention if any of the following occur: Fever of 100.4F (38C) or higher, or as directed by your healthcare provider No improvement by the third day of treatment Increasing back or abdominal pain Repeated vomiting; unable to keep medicine down Weakness, dizziness or fainting Urinary Retention (Male) Urinary retention means that you are unable to pass urine, even though your bladder is full. The most common cause for this in males is a blockage of the bladder outlet by an enlarged prostate gland or a bladder infection. Certain medicines can also cause this problem. This condition is treated by insertion of a catheter into the bladder to drain the urine. This provides immediate relief. The catheter may need to remain in place for a few days to prevent a recurrence. The catheter has a balloon on the tip which was inflated after insertion. This prevents the catheter from falling out. Home Care: If an antibiotic was prescribed to treat a bladder infection, be sure to take it until finished, even if you are feeling better before it is all gone. If a catheter was left in place, it is important to keep bacteria from getting into the collection bag. Do not disconnect the catheter from the collection bag. Use a leg band to secure the drainage tube, so it does not pull on the catheter. Drain the collection bag when it becomes full using the drain spout at the bottom of the bag. Do not try to pull or remove your catheter. This will injure your urethra. It must be removed by a doctor or nurse. Follow Up with your doctor as advised. If a catheter was left in place, it can usually be removed within 3-7 days. Some conditions require that the catheter remains in longer. Follow up with your doctor to determine the right time for you. Get Prompt Medical Attention if any of the following occur: Fever of 100.4F (38C) or higher, or as directed by your healthcare provider Bladder or lower abdominal pain or fullness Abdominal swelling, nausea, vomiting or back pain Blood or urine leakage around the catheter Bloody urine coming from the catheter (if a new symptom) Weakness, dizziness or fainting Confusion or change in usual level of alertness If a catheter was left in place, return if: Catheter falls out Catheter stops draining for 6 hours Ferrara Catheter Care A Ferrara catheter is a rubber tube that is placed through the urethra (opening where urine comes out) and into the bladder. This helps drain urine from the bladder. There is a small balloon on the end of the tube that is inflated after insertion. This keeps the catheter from sliding out of the bladder. A Ferrara catheter is used to treat urinary retention (unable to pass urine). It is also used when there is incontinence (loss of bladder control). Home Care: Finish taking any prescribed antibiotic even if you are feeling better before then. It is important to keep bacteria from getting into the collection bag. Do not disconnect the catheter from the collection bag. Use a leg band to secure the drainage tube, so it does not pull on the catheter. Drain the collection bag when it becomes full using the drain spout at the bottom of the bag. Do not try to pull or remove your catheter. This will injure your urethra. It must be removed by a doctor or nurse. Follow Up with your doctor, or as advised, for repeat urine testing and catheter removal or replacement. Get Prompt Medical Attention if any of the following occur: Fever of 100.4F (38C) or higher, or as directed by your healthcare provider Bladder pain or fullness Abdominal swelling, nausea or vomiting or back pain Blood or urine leakage around the catheter Bloody urine coming from the catheter (if a new symptom) Catheter falls out Catheter stops draining for 6 hours Weakness, dizziness or fainting Blood In The Urine Blood in the urine ("hematuria") has many possible causes. If it occurs after an injury (such as a car accident or fall), it is most often a sign of bruising to the kidney or bladder. Common medical causes of blood in the urine include urinary tract infection, kidney stone, inflammation, tumors, or certain other diseases of the kidney or bladder. Menstruation can cause blood to appear in the urine sample, although it is not coming from the urinary tract. If only a trace amount of blood is present, it will show up on the urine test, even though the urine may be yellow and not pink or red. This may occur with any of the above conditions, as well as heavy exercise or high fever. In this case, your doctor may want to repeat the urine test on another day. This will show if the blood is still present. If so, then other tests can be done to find out the cause. Home Care: If your urine does not appear bloody (pink, brown or red) then you do not need to restrict your activity in any way. If you can see blood in your urine, rest and avoid heavy exertion until your next exam. Do not use aspirin or anti-inflammatory medicine like ibuprofen (Motrin, Advil) or naproxen (Naprosyn, Aleve). These thin the blood and may increase bleeding. Follow Up with your doctor or as advised by our staff. If you were injured and had blood in your urine, you should have a repeat urine test in 1-2 days. Contact your doctor or return to this facility for this test. [NOTE: A radiologist will review any X-rays that were taken. We will notify you of any new findings that may affect your care.] Get Prompt Medical Attention if any of the following occur: Bright red blood or blood clots in the urine (if a new symptom) Weakness, dizziness or fainting New groin, abdominal or back pain Fever of 100.4F (38C) or higher, or as directed by your healthcare provider Repeated vomiting Bleeding from nose, gums or easy bruising You have been given the following additional information: Bladder Infection, Male (Adult) Urinary Retention, Male Ferrara Catheter, Care Hematuria No driving or operating machinery while taking medication. Rest. (Electronically signed by lEeno Dumont MD 11/04/2016 9:13)
--- NOTE | 2016-11-04 09:13 | ED MAR SUMMARY ---
..... Medication Administration Record [facility] [address] [place], [place] [id number] Patient: AUSTIN SAHNI Visit ID: [id number] 51y, M Weight: 131.5 kg Height/Length: 72 in BMI: 39.4 ALLERGIES: No Known Drug Allergy
== END 2016-11-04 06:29 | disposition home or self-care (01) ==
LOC: ED SRH 04:51
DX: R33.9 Retention of urine, unspecified (principal); N39.0 Urinary tract infection, site not specified; R31.0 Gross hematuria; Z46.6 Encounter for fitting and adjustment of urinary device
CPT/HCPCS: 90004; 90469

== ENCOUNTER 2016-11-04 18:11 | Emergency (ER) | payer BC ==
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
--- NOTE | 2016-11-04 21:33 | ED ORDER SUMMARY ---
..... Patient: AUSTIN SAHNI OrderSheet [facility] VisitID: [id number] [place] [address] 51y, M Registration Date/Time: 11/04/2016 ORDER SHEET Weight: 131.5 kg (stated) Allergies: No Known Drug Allergy GENERAL ORDERS: CBC w Diff Urgent (18:46 11/04/2016 Layne Ahumada) (Ack 18:56 LNations ER Tech1) (18:58 EHassan R.N.) CMP Urgent (18:46 11/04/2016 Layne Ahumada) (Ack 18:56 LNations ER Tech1) (18:58 EHassan R.N.) UA-Culture if indicated Urgent (18:46 11/04/2016 Layne Ahumada) (Ack 18:56 LNations ER Tech1) (19:28 EHassan R.N.) PT with INR Urgent (18:46 11/04/2016 Layne Ahumada) (Ack 18:56 LNations ER Tech1) (18:58 EHassan R.N.) PTT Urgent (18:46 11/04/2016 Layne Ahumada) (Ack 18:56 LNations ER Tech1) (18:58 EHassan R.N.) MEDICATION ORDERS: IV FLUIDS: IV NS : initial bolus none -, then 1000 mL/hr for X1 (NOW) (18:46 11/04/2016 Layne Ahumada) (19:29 EHassan R.N.) Diazepam IV 5 mg (HIGH ALERT MEDICATION, NOW) (18:46 11/04/2016 Layne Ahumada) (18:58 EHassan R.N.) Morphine IV 4 mg (HIGH ALERT MEDICATION, NOW) (19:33 11/04/2016 Layne Ahumada) (19:43 EHassan R.N.) Zofran IV 4 mg (NOW) (19:33 11/04/2016 Layne Ahumada) (19:43 EHassan R.N.) IV NS : initial bolus 1000 mL (1000 mL/hr), then none - for X1 (NOW) (20:01 11/04/2016 Mabel R.N. verbal order read back to Layne Ahumada) (20:09 Mabel BrownN.) Morphine IV 4 mg (NOW) (20:50 11/04/2016 Mabel Frank verbal order read back to Layne Ahumada) (21:04 Mabel R.N.) Dilaudid IV 1 mg (HIGH ALERT MEDICATION, NOW) (22:03 11/04/2016 Layne Ahumada) (22:39 Mabel Gil.N.) Diazepam IV 5 mg (NOW) (22:39 11/04/2016 Mabel Frank verbal order read back to Layne Ahumada) (22:59 Mabel R.N.) ORDER SHEET NOTES: [Electronically signed by Dulce De Leon R.N. (07:56 11/05/2016)] [Electronically signed by Avinash Mijares Dr. (20:36 11/05/2016)] [Electronically locked/signed by Dulce De Leon R.N. (07:56 11/05/2016)]
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
--- NOTE | 2016-11-04 21:33 | ED ORDER SUMMARY ---
..... Patient: AUSTIN SAHNI OrderSheet [facility] VisitID: [id number] [place] [address] 51y, M Registration Date/Time: 11/04/2016 ORDER SHEET Weight: 131.5 kg (stated) Allergies: No Known Drug Allergy GENERAL ORDERS: CBC w Diff Urgent (18:46 11/04/2016 Layne Ahumada) (Ack 18:56 LNations ER Tech1) (18:58 EHassan R.N.) CMP Urgent (18:46 11/04/2016 Layne Ahumada) (Ack 18:56 LNations ER Tech1) (18:58 EHassan R.N.) UA-Culture if indicated Urgent (18:46 11/04/2016 Layne Ahumada) (Ack 18:56 LNations ER Tech1) (19:28 EHassan R.N.) PT with INR Urgent (18:46 11/04/2016 Layne Ahumada) (Ack 18:56 LNations ER Tech1) (18:58 EHassan R.N.) PTT Urgent (18:46 11/04/2016 Layne Ahumada) (Ack 18:56 LNations ER Tech1) (18:58 EHassan R.N.) MEDICATION ORDERS: IV FLUIDS: IV NS : initial bolus none -, then 1000 mL/hr for X1 (NOW) (18:46 11/04/2016 Layne Ahumada) (19:29 EHassan R.N.) Diazepam IV 5 mg (HIGH ALERT MEDICATION, NOW) (18:46 11/04/2016 Layne Ahumada) (18:58 EHassan R.N.) Morphine IV 4 mg (HIGH ALERT MEDICATION, NOW) (19:33 11/04/2016 Layne Ahumada) (19:43 EHassan R.N.) Zofran IV 4 mg (NOW) (19:33 11/04/2016 Layne Ahumada) (19:43 EHassan R.N.) IV NS : initial bolus 1000 mL (1000 mL/hr), then none - for X1 (NOW) (20:01 11/04/2016 Mabel R.N. verbal order read back to Layne Ahumada) (20:09 Mabel BrownN.) Morphine IV 4 mg (NOW) (20:50 11/04/2016 Mabel Frank verbal order read back to Layne Ahumada) (21:04 Mabel R.N.) Dilaudid IV 1 mg (HIGH ALERT MEDICATION, NOW) (22:03 11/04/2016 Layne Ahumada) (22:39 Mabel Gil.N.) Diazepam IV 5 mg (NOW) (22:39 11/04/2016 Mabel Frank verbal order read back to Layne Ahumada) (22:59 Mabel R.N.) ORDER SHEET NOTES: [Electronically signed by Dulce De Leon R.N. (07:56 11/05/2016)] [Electronically signed by Avinash Mijares Dr. (20:36 11/05/2016)] [Electronically locked/signed by Dulce De Leon R.N. (07:56 11/05/2016)]
--- NOTE | 2016-11-05 20:36 | ED MED RECONCILIATION SUMMARY ---
Patient: AUSTIN SAHNI Medication Reconciliation Report Formerly [facility] VisitID: [id number] [address] [place] [address] 51y, M Registration Date/Time: 11/04/2016 Weight: 131.5 kg Height/Length: 72 in. BMI: 39.4 ALLERGIES: No Known Drug Allergy The patient's Home Medications are listed below: CONTINUE TAKING THE FOLLOWING MEDICATIONS: Atorvastatin Calcium Oral (20 mg), daily Cipro Oral Fenofibrate Oral (160 mg), daily Gabapentin Oral (300 mg) 1-4 caps, at bedtime HumaLOG Subcutaneous Levemir Subcutaneous Lisinopril Oral 40 mg, daily Naproxen Oral 500 mg, 2x a day Percocet Oral, PRN Tamsulosin HCl Oral 0.4 mg, daily The source(s) of the original Home Medication information: patient The following Medications were given to the patient in the Emergency Department: Diazepam [IVP] IVP 5 mg, administered: 11/04/2016 6:58:00 PM IV NS IV Fluids bolus 0, then 1000 mL/hr, administered: 11/04/2016 7:28:00 PM Morphine [IVP] IVP 4 mg, administered: 11/04/2016 7:43:00 PM Zofran [IVP] IVP 4 mg, administered: 11/04/2016 7:43:00 PM Zofran [IVP] IVP 4 mg, administered: 11/04/2016 8:00:00 PM IV NS IV Fluids bolus 0, then 1000 mL/hr, administered: 11/04/2016 8:09:00 PM Morphine [IVP] IVP 4 mg, administered: 11/04/2016 9:04:00 PM Dilaudid [IVP] IVP 1 mg, administered: 11/04/2016 10:10:00 PM Diazepam [IVP] IVP 5 mg, administered: 11/04/2016 10:49:00 PM The following Medications were prescribed to the patient: Hydrocodone/APAP 5mg / 325mg: take 1 orally every 6 hours as needed for pain. Dispense fifteen (15). No refill. -- Avinash Mijares Dr. Zofrstephanie (orally disintegrating tablets) 4 mg: take 1 orally every 6 hours as needed for nausea and vomiting. Dispense ten (10). No refill. Substitution is permissible. -- Avinash Mijares Dr. Rx's shredded due to pt being transferred. -- Avinash Mijares Dr. Diazepam 5 mg tablets: take 1 tablet orally every 6 hours as needed for muscle spasm. Dispense fifteen (15). No refill. -- Avinash Mijares Dr.
--- NOTE | 2016-11-05 20:36 | ED MED RECONCILIATION SUMMARY ---
Patient: AUSTIN SAHNI Medication Reconciliation Report [facility] VisitID: [id number] [address] [place] [address] 51y, M Registration Date/Time: 11/04/2016 Weight: 131.5 kg Height/Length: 72 in. BMI: 39.4 ALLERGIES: No Known Drug Allergy The patient's Home Medications are listed below: CONTINUE TAKING THE FOLLOWING MEDICATIONS: Atorvastatin Calcium Oral (20 mg), daily Cipro Oral Fenofibrate Oral (160 mg), daily Gabapentin Oral (300 mg) 1-4 caps, at bedtime HumaLOG Subcutaneous Levemir Subcutaneous Lisinopril Oral 40 mg, daily Naproxen Oral 500 mg, 2x a day Percocet Oral, PRN Tamsulosin HCl Oral 0.4 mg, daily The source(s) of the original Home Medication information: patient The following Medications were given to the patient in the Emergency Department: Diazepam [IVP] IVP 5 mg, administered: 11/04/2016 6:58:00 PM IV NS IV Fluids bolus 0, then 1000 mL/hr, administered: 11/04/2016 7:28:00 PM Morphine [IVP] IVP 4 mg, administered: 11/04/2016 7:43:00 PM Zofran [IVP] IVP 4 mg, administered: 11/04/2016 7:43:00 PM Zofran [IVP] IVP 4 mg, administered: 11/04/2016 8:00:00 PM IV NS IV Fluids bolus 0, then 1000 mL/hr, administered: 11/04/2016 8:09:00 PM Morphine [IVP] IVP 4 mg, administered: 11/04/2016 9:04:00 PM Dilaudid [IVP] IVP 1 mg, administered: 11/04/2016 10:10:00 PM Diazepam [IVP] IVP 5 mg, administered: 11/04/2016 10:49:00 PM The following Medications were prescribed to the patient: Hydrocodone/APAP 5mg / 325mg: take 1 orally every 6 hours as needed for pain. Dispense fifteen (15). No refill. -- Avinash Mijares Dr. Zofrstephanie (orally disintegrating tablets) 4 mg: take 1 orally every 6 hours as needed for nausea and vomiting. Dispense ten (10). No refill. Substitution is permissible. -- Avinash Mijares Dr. Rx's shredded due to pt being transferred. -- Avinash Mijares Dr. Diazepam 5 mg tablets: take 1 tablet orally every 6 hours as needed for muscle spasm. Dispense fifteen (15). No refill. -- Avinash Mijares Dr.
--- NOTE | 2016-11-05 20:36 | ED DISCHARGE INSTRUCTIONS ---
Patient: AUSTIN SAHNI General Instructions [facility] VisitID: [id number] [place] [address] 51y, M Registration Date/Time: 11/04/2016 Gross hematuria INSTRUCTIONS Keep catheter in place; care as directed until released. Your Current Medications: CONTINUE TAKING THE FOLLOWING MEDICATIONS: Atorvastatin Calcium Oral : Tablet 20 mg, daily. Cipro Oral. Fenofibrate Oral : Tablet 160 mg, daily. Gabapentin Oral : Capsule 300 mg, 1-4 caps at bedtime. HumaLOG Subcutaneous. Levemir Subcutaneous. Lisinopril Oral : 40 mg daily. Naproxen Oral : 500 mg 2x a day. Percocet Oral : PRN. Tamsulosin HCl Oral : 0.4 mg daily. Prescription Medications: Hydrocodone/APAP 5mg / 325mg: take 1 orally every 6 hours as needed for pain. Dispense fifteen (15). No refill. Zofran (orally disintegrating tablets) 4 mg: take 1 orally every 6 hours as needed for nausea and vomiting. Dispense ten (10). No refill. Substitution is permissible. Diazepam 5 mg tablets: take 1 tablet orally every 6 hours as needed for muscle spasm. Dispense fifteen (15). No refill. Rx's shredded due to pt being transferred. Follow-up: Blood pressure screening was not performed during this visit because the patient has an active diagnosis of hypertension. ADDITIONAL INFORMATION Blood In The Urine Blood in the urine ("hematuria") has many possible causes. If it occurs after an injury (such as a car accident or fall), it is most often a sign of bruising to the kidney or bladder. Common medical causes of blood in the urine include urinary tract infection, kidney stone, inflammation, tumors, or certain other diseases of the kidney or bladder. Menstruation can cause blood to appear in the urine sample, although it is not coming from the urinary tract. If only a trace amount of blood is present, it will show up on the urine test, even though the urine may be yellow and not pink or red. This may occur with any of the above conditions, as well as heavy exercise or high fever. In this case, your doctor may want to repeat the urine test on another day. This will show if the blood is still present. If so, then other tests can be done to find out the cause. Home Care: If your urine does not appear bloody (pink, brown or red) then you do not need to restrict your activity in any way. If you can see blood in your urine, rest and avoid heavy exertion until your next exam. Do not use aspirin or anti-inflammatory medicine like ibuprofen (Motrin, Advil) or naproxen (Naprosyn, Aleve). These thin the blood and may increase bleeding. Follow Up with your doctor or as advised by our staff. If you were injured and had blood in your urine, you should have a repeat urine test in 1-2 days. Contact your doctor or return to this facility for this test. [NOTE: A radiologist will review any X-rays that were taken. We will notify you of any new findings that may affect your care.] Get Prompt Medical Attention if any of the following occur: Bright red blood or blood clots in the urine (if a new symptom) Weakness, dizziness or fainting New groin, abdominal or back pain Fever of 100.4F (38C) or higher, or as directed by your healthcare provider Repeated vomiting Bleeding from nose, gums or easy bruising Ferrara Catheter Care A Ferrara catheter is a rubber tube that is placed through the urethra (opening where urine comes out) and into the bladder. This helps drain urine from the bladder. There is a small balloon on the end of the tube that is inflated after insertion. This keeps the catheter from sliding out of the bladder. A Ferrara catheter is used to treat urinary retention (unable to pass urine). It is also used when there is incontinence (loss of bladder control). Home Care: Finish taking any prescribed antibiotic even if you are feeling better before then. It is important to keep bacteria from getting into the collection bag. Do not disconnect the catheter from the collection bag. Use a leg band to secure the drainage tube, so it does not pull on the catheter. Drain the collection bag when it becomes full using the drain spout at the bottom of the bag. Do not try to pull or remove your catheter. This will injure your urethra. It must be removed by a doctor or nurse. Follow Up with your doctor, or as advised, for repeat urine testing and catheter removal or replacement. Get Prompt Medical Attention if any of the following occur: Fever of 100.4F (38C) or higher, or as directed by your healthcare provider Bladder pain or fullness Abdominal swelling, nausea or vomiting or back pain Blood or urine leakage around the catheter Bloody urine coming from the catheter (if a new symptom) Catheter falls out Catheter stops draining for 6 hours Weakness, dizziness or fainting Hydrocodone Bitartrate, Acetaminophen Oral tablet What is this medicine? ACETAMINOPHEN; HYDROCODONE (a set a MELISSA claudine fen; ina droe KOE done) is a pain reliever. It is used to treat mild to moderate pain. How should I use this medicine? Take this medicine by mouth. Swallow it with a full glass of water. Follow the directions on the prescription label. If the medicine upsets your stomach, take the medicine with food or milk. Do not take more than you are told to take. Talk to your lan specialist regarding the use of this medicine in children. This medicine is not approved for use in children. What side effects may I notice from receiving this medicine? Side effects that you should report to your doctor or health childbirth and infant care teacher as soon as possible: allergic reactions like skin rash, itching or hives, swelling of the face, lips, or tongue breathing problems confusion feeling faint or lightheaded, falls stomach pain yellowing of the eyes or skin Side effects that usually do not require medical attention (report to your doctor or health childbirth and infant care teacher if they continue or are bothersome): nausea, vomiting stomach upset What may interact with this medicine? alcohol antihistamines isoniazid medicines for depression, anxiety, or psychotic disturbances medicines for sleep muscle relaxants naltrexone narcotic medicines (opiates) for pain phenobarbital ritonavir tramadol What if I miss a dose? If you miss a dose, take it as soon as you can. If it is almost time for your next dose, take only that dose. Do not take double or extra doses. Where should I keep my medicine? Keep out of the reach of children. This medicine can be abused. Keep your medicine in a safe place to protect it from theft. Do not share this medicine with anyone. Selling or giving away this medicine is dangerous and against the law. Store at room temperature between 15 and 30 degrees C (59 and 86 degrees F). Protect from light. Keep container tightly closed. Throw away any unused medicine after the expiration date. Discard unused medicine and used packaging carefully. Pets and children can be harmed if they find used or lost packages. What should I tell my health care provider before I take this medicine? They need to know if you have any of these conditions: brain tumor Crohn's disease, inflammatory bowel disease, or ulcerative colitis drink more than 3 alcohol-containing drinks per day drug abuse or addiction head injury heart or circulation problems kidney disease or problems going to the bathroom liver disease lung disease, asthma, or breathing problems an unusual or allergic reaction to acetaminophen, hydrocodone, other opioid analgesics, other medicines, foods, dyes, or preservatives or trying to get breast-feeding What should I watch for while using this medicine? Tell your doctor or health childbirth and infant care teacher if your pain does not go away, if it gets worse, or if you have new or a different type of pain. You may develop tolerance to the medicine. Tolerance means that you will need a higher dose of the medicine for pain relief. Tolerance is normal and is expected if you take the medicine for a long time. Do not suddenly stop taking your medicine because you may develop a severe reaction. Your body becomes used to the medicine. This does NOT mean you are addicted. Addiction is a behavior related to getting and using a drug for a non-medical reason. If you have pain, you have a medical reason to take pain medicine. Your doctor will tell you how much medicine to take. If your doctor wants you to stop the medicine, the dose will be slowly lowered over time to avoid any side effects. You may get drowsy or dizzy when you first start taking the medicine or change doses. Do not drive, use machinery, or do anything that may be dangerous until you know how the medicine affects you. Stand or sit up slowly. There are different types of narcotic medicines (opiates) for pain. If you take more than one type at the same time, you may have more side effects. Give your health care provider a list of all medicines you use. Your doctor will tell you how much medicine to take. Do not take more medicine than directed. Call emergency for help if you have problems breathing. The medicine will cause constipation. Try to have a bowel movement at least every 2 to 3 days. If you do not have a bowel movement for 3 days, call your doctor or health childbirth and infant care teacher. Too much acetaminophen can be very dangerous. Do not take Tylenol (acetaminophen) or medicines that contain acetaminophen with this medicine. Many non-prescription medicines contain acetaminophen. Always read the labels carefully. Ondansetron Oral disintegrating tablet What is this medicine? ONDANSETRON (on FRANCISCO se deandra) is used to treat nausea and vomiting caused by chemotherapy. It is also used to prevent or treat nausea and vomiting after surgery. How should I use this medicine? These tablets are made to dissolve in the mouth. Do not try to push the tablet through the foil backing. With dry hands, peel away the foil backing and gently remove the tablet. Place the tablet in the mouth and allow it to dissolve, then swallow. While you may take these tablets with water, it is not necessary to do so. Talk to your lan specialist regarding the use of this medicine in children. Special care may be needed. What side effects may I notice from receiving this medicine? Side effects that you should report to your doctor or health childbirth and infant care teacher as soon as possible: allergic reactions like skin rash, itching or hives, swelling of the face, lips, or tongue breathing problems dizziness fast or irregular heartbeat feeling faint or lightheaded, falls fever and chills swelling of the hands and feet tightness in the chest Side effects that usually do not require medical attention (report to your doctor or health childbirth and infant care teacher if they continue or are bothersome): constipation or diarrhea headache What may interact with this medicine? Do not take this medicine with any of the following medications: -apomorphine -cisapride -dofetilide -dronedarone -pimozide -thioridazine -ziprasidone This medicine may also interact with the following medications: -carbamazepine -phenytoin -rifampicin -tramadol -other medicines that prolong the QT interval (cause an abnormal heart rhythm) What if I miss a dose? If you miss a dose, take it as soon as you can. If it is almost time for your next dose, take only that dose. Do not take double or extra doses. Where should I keep my medicine? Keep out of the reach of children. Store between 2 and 30 degrees C (36 and 86 degrees F). Throw away any unused medicine after the expiration date. What should I tell my health care provider before I take this medicine? They need to know if you have any of these conditions: heart disease history of irregular heartbeat liver disease low levels of magnesium or potassium in the blood an unusual or allergic reaction to ondansetron, granisetron, other medicines, foods, dyes, or preservatives or trying to get breast-feeding What should I watch for while using this medicine? Check with your doctor or health childbirth and infant care teacher as soon as you can if you have any sign of an allergic reaction. Diazepam Oral tablet What is this medicine? DIAZEPAM (dye AZ e bianka) is a benzodiazepine. It is used to treat anxiety and nervousness. It also can help treat alcohol withdrawal, relax muscles, and treat certain types of seizures. How should I use this medicine? Take this medicine by mouth with a glass of water. Follow the directions on the prescription label. If this medicine upsets your stomach, take it with food or milk. Take your doses at regular intervals. Do not take your medicine more often than directed. If you have been taking this medicine regularly for some time, do not suddenly stop taking it. You must gradually reduce the dose or you may get severe side effects. Ask your doctor or health childbirth and infant care teacher for advice. Even after you stop taking this medicine it can still affect your body for several days. Talk to your lan specialist regarding the use of this medicine in children. Special care may be needed. What side effects may I notice from receiving this medicine? Side effects that you should report to your doctor or health childbirth and infant care teacher as soon as possible: allergic reactions like skin rash, itching or hives, swelling of the face, lips, or tongue angry, confused, depressed, other mood changes breathing problems feeling faint or lightheaded, falls muscle cramps problems with balance, talking, walking restlessness tremors trouble passing urine or change in the amount of urine unusually weak or tired Side effects that usually do not require medical attention (report to your doctor or health childbirth and infant care teacher if they continue or are bothersome): difficulty sleeping, nightmares dizziness, drowsiness, clumsiness, or unsteadiness, a hangover effect headache nausea, vomiting What may interact with this medicine? cimetidine grapefruit juice herbal or dietary supplements like kava kava, melatonin, Mima's Wort, or valerian medicines for anxiety or sleeping problems, like alprazolam, lorazepam, or triazolam medicines for depression, mental problems or psychiatric disturbances medicines for HIV infection or AIDS prescription pain medicines rifampin, rifapentine, or rifabutin some medicines for seizures like carbamazepine, phenobarbital, phenytoin, or primidone What if I miss a dose? If you miss a dose, take it as soon as you can. If it is almost time for your next dose, take only that dose. Do not take double or extra doses. Where should I keep my medicine? Keep out of the reach of children. This medicine can be abused. Keep your medicine in a safe place to protect it from theft. Do not share this medicine with anyone. Selling or giving away this medicine is dangerous and against the law. Store at room temperature between 15 and 30 degrees C (59 and 86 degrees F). Protect from light. Keep container tightly closed. Throw away any unused medicine after the expiration date. What should I tell my health care provider before I take this medicine? They need to know if you have any of these conditions an alcohol or drug abuse problem bipolar disorder, depression, psychosis or other mental health condition glaucoma kidney or liver disease lung or breathing disease myasthenia gravis Parkinson's disease seizures or a history of seizures suicidal thoughts an unusual or allergic reaction to diazepam, other benzodiazepines, foods, dyes, or preservatives or trying to get breast-feeding What should I watch for while using this medicine? Visit your doctor or health childbirth and infant care teacher for regular checks on your progress. Your body can become dependent on this medicine. Ask your doctor or health childbirth and infant care teacher if you still need to take it. You may get drowsy or dizzy. Do not drive, use machinery, or do anything that needs mental alertness until you know how this medicine affects you. To reduce the risk of dizzy and fainting spells, do not stand or sit up quickly, especially if you are an older patient. Alcohol may increase dizziness and drowsiness. Avoid alcoholic drinks. Do not treat yourself for coughs, colds or allergies without asking your doctor or health childbirth and infant care teacher for advice. Some ingredients can increase possible side effects. You have been given the following additional information: Hematuria Ferrara Catheter, Care Hydrocodone Bitartrate, Acetaminophen Oral tablet Ondansetron Oral disintegrating tablet Diazepam Oral tablet (Electronically signed by Avinash Mijares Dr. 11/05/2016 20:36)
--- NOTE | 2016-11-05 20:36 | ED MAR SUMMARY ---
..... Medication Administration Record [facility] [address] [place] [address] Patient: AUSTIN SAHNI Visit ID: [id number] 51y, M Weight: 131.5 kg Height/Length: 72 in BMI: 39.4 ALLERGIES: No Known Drug Allergy Given 18:58 11/04/2016 Heena Kirkpatrick R.N. Medication Administered: DIAZEPAM [IVP] (DIAZEPAM), Dose: 5 mg IVP over 30 second(s), Site: #1 left AC. Medication Ordered: Diazepam IV 5 mg (HIGH ALERT MEDICATION, NOW). Start 19:28 11/04/2016 Heena Kirkpatrick R.N., Stop 20:00 11/04/2016 Heena Kirkpatrick R.N. Medication Administered: IV NS (SALINE), Dose: IV Fluids over 1 hour(s), Rate: 1000 mL/hr, Dispensed: 1000 mL bag, Site: #1 left AC. Medication Ordered: IV NS : initial bolus none -, then 1000 mL/hr for X1 (NOW). Given 19:43 11/04/2016 Heena Kirkpatrick R.N. Medication Administered: MORPHINE [IVP], Dose: 4 mg IVP over 2 minute(s), Site: #1 left AC. Medication Ordered: Morphine IV 4 mg (HIGH ALERT MEDICATION, NOW). Given 19:43 11/04/2016 Heena Kirkpatrick R.N. Medication Administered: ZOFRAN [IVP] (ONDANSETRON HCL), Dose: 4 mg IVP over 2 minute(s), Site: #1 left AC. Medication Ordered: Zofran IV 4 mg (NOW). Given 20:00 11/04/2016 Heena Kirkpatrick R.NBenjamin Medication Administered: ZOFRAN [IVP] (ONDANSETRON HCL), Dose: 4 mg IVP over 2 minute(s), Site: #1 left AC. Medication Ordered: Zofran IV 4 mg (NOW). Start 20:09 11/04/2016 Heena Kirkpatrick R.N. Medication Administered: IV NS (SALINE), Dose: IV Fluids over 1 hour(s), Rate: 1000 mL/hr, Dispensed: 1000 mL bag, Site: #1 left AC. Medication Ordered: IV NS : initial bolus 1000 mL (1000 mL/hr), then none - for X1 (NOW). Given 21:04 11/04/2016 Heena Kirkpatrick R.N. Medication Administered: MORPHINE [IVP], Dose: 4 mg IVP over 1 minute(s), Site: #1 left AC. Medication Ordered: Morphine IV 4 mg (NOW). Given 22:10 11/04/2016 Heena Kirkpatrick R.N. Medication Administered: DILAUDID [IVP] (HYDROMORPHONE HCL PF), Dose: 1 mg IVP over 2 minute(s), Site: #1 left AC. Medication Ordered: Dilaudid IV 1 mg (HIGH ALERT MEDICATION, NOW). Given 22:49 11/04/2016 Heena Kirkpatrick R.N. Medication Administered: DIAZEPAM [IVP] (DIAZEPAM), Dose: 5 mg IVP over 2 minute(s), Site: #1 left AC. Medication Ordered: Diazepam IV 5 mg (NOW).
--- NOTE | 2016-11-05 20:36 | ED MAR SUMMARY ---
..... Medication Administration Record [facility] [address] [place] [address] Patient: AUSTIN SAHNI Visit ID: [id number] 51y, M Weight: 131.5 kg Height/Length: 72 in BMI: 39.4 ALLERGIES: No Known Drug Allergy Given 18:58 11/04/2016 Heena Kirkpatrick R.N. Medication Administered: DIAZEPAM [IVP] (DIAZEPAM), Dose: 5 mg IVP over 30 second(s), Site: #1 left AC. Medication Ordered: Diazepam IV 5 mg (HIGH ALERT MEDICATION, NOW). Start 19:28 11/04/2016 Heena Kirkpatrick R.N., Stop 20:00 11/04/2016 Heena Kirkpatrick R.N. Medication Administered: IV NS (SALINE), Dose: IV Fluids over 1 hour(s), Rate: 1000 mL/hr, Dispensed: 1000 mL bag, Site: #1 left AC. Medication Ordered: IV NS : initial bolus none -, then 1000 mL/hr for X1 (NOW). Given 19:43 11/04/2016 Heena Kirkpatrick R.N. Medication Administered: MORPHINE [IVP], Dose: 4 mg IVP over 2 minute(s), Site: #1 left AC. Medication Ordered: Morphine IV 4 mg (HIGH ALERT MEDICATION, NOW). Given 19:43 11/04/2016 Heena Kirkpatrick R.N. Medication Administered: ZOFRAN [IVP] (ONDANSETRON HCL), Dose: 4 mg IVP over 2 minute(s), Site: #1 left AC. Medication Ordered: Zofran IV 4 mg (NOW). Given 20:00 11/04/2016 Heena Kirkpatrick R.NBenjamin Medication Administered: ZOFRAN [IVP] (ONDANSETRON HCL), Dose: 4 mg IVP over 2 minute(s), Site: #1 left AC. Medication Ordered: Zofran IV 4 mg (NOW). Start 20:09 11/04/2016 Heena Kirkpatrick R.N. Medication Administered: IV NS (SALINE), Dose: IV Fluids over 1 hour(s), Rate: 1000 mL/hr, Dispensed: 1000 mL bag, Site: #1 left AC. Medication Ordered: IV NS : initial bolus 1000 mL (1000 mL/hr), then none - for X1 (NOW). Given 21:04 11/04/2016 Heena Kirkpatrick R.N. Medication Administered: MORPHINE [IVP], Dose: 4 mg IVP over 1 minute(s), Site: #1 left AC. Medication Ordered: Morphine IV 4 mg (NOW). Given 22:10 11/04/2016 Heena Kirkpatrick R.N. Medication Administered: DILAUDID [IVP] (HYDROMORPHONE HCL PF), Dose: 1 mg IVP over 2 minute(s), Site: #1 left AC. Medication Ordered: Dilaudid IV 1 mg (HIGH ALERT MEDICATION, NOW). Given 22:49 11/04/2016 Heena Kirkpatrick R.N. Medication Administered: DIAZEPAM [IVP] (DIAZEPAM), Dose: 5 mg IVP over 2 minute(s), Site: #1 left AC. Medication Ordered: Diazepam IV 5 mg (NOW).
== END 2016-11-05 00:11 | disposition short-term general hospital (02) ==
LOC: ED SRH 18:11
DX: R31.0 Gross hematuria (principal); T83.098D Other mechanical complication of other urinary catheter, subsequent encounter; E11.9 Type 2 diabetes mellitus without complications; I10 Essential (primary) hypertension; Z79.4 Long term (current) use of insulin; Z79.899 Other long term (current) drug therapy; Z79.2 Long term (current) use of antibiotics
CPT/HCPCS: 90004; 90100; 90469; 94001; 94060; 95059

== ENCOUNTER 2017-01-08 10:36 | Outpatient (CLI) | payer BC ==
--- NOTE | 2017-01-08 13:52 | DIAGNOSTIC IMAGING REPORT ---
PROCEDURE: CT IVP CLINICAL INDICATION: BLADDER CA TECHNIQUE: Preliminary AP and lateral splitter machine views of the abdomen were obtained. Subsequently, noncontrast axial images were obtained of the entire abdomen and pelvis. 150 ml of Isovue 300 was injected intravenously, and axial images were obtained of the abdomen and pelvis with biphasic imaging of the liver and kidneys, followed by sagittal and coronal reformations. Postinjection AP splitter machine view of the abdomen was also obtained. COMPARISON: CT chest/abdomen/pelvis 11/12/2016 from [facility] and CT abdomen/pelvis 11/03/2016 from [facility]. FINDINGS: NONCONTRAST ABDOMEN: Normal kidneys. Mild dilation of the right ureter, unchanged, and no evidence of a distal calculus. CONTRAST ABDOMEN: Small bibasilar of patchy densities suggestive of pneumonitis. Heart size is normal. Liver measures 22 cm and spleen 14.6 cm. The gallbladder, pancreas and adrenal glands are normal. Normal enhancement and excretion of the kidneys. No evidence of a mass or hydronephrosis. Mild dilation of the distal right ureter without evidence of obstruction. Mild atherosclerosis of the aorta. Nonspecific bowel gas pattern. NONCONTRAST PELVIS: Ferrara catheter in place with interval progression of the slightly hyperdense bladder mass since CT scan 11/12/2016. CONTRAST PELVIS: 3.2 x 3.6 cm irregular bladder mass (previously 3.1 x 1.8 cm) arising from the right bladder wall with some thickening of the underline bladder wall. New surgical clips below the aortic bifurcation. There is small iliac and inguinal lymph nodes. Occasional sigmoid diverticula. Mild degenerative changes of the spine. IMPRESSION: 1. 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 2. Hepatosplenomegaly 3. Ferrara catheter in place 4. New surgical clips inferior to the aortic bifurcation 5. Small bibasilar patchy densities suggestive of pneumonitis All CT scans at this facility use dose modulation, iterative reconstruction, and/or weight-based dosing when appropriate to reduce radiation dose to as low as reasonably achievable.
--- NOTE | 2017-01-08 13:52 | DIAGNOSTIC IMAGING REPORT ---
PROCEDURE: CT IVP CLINICAL INDICATION: BLADDER CA TECHNIQUE: Preliminary AP and lateral tail edger views of the abdomen were obtained. Subsequently, noncontrast axial images were obtained of the entire abdomen and pelvis. 150 ml of Isovue 300 was injected intravenously, and axial images were obtained of the abdomen and pelvis with biphasic imaging of the liver and kidneys, followed by sagittal and coronal reformations. Postinjection AP tail edger view of the abdomen was also obtained. COMPARISON: CT chest/abdomen/pelvis 11/12/2016 from [facility] and CT abdomen/pelvis 11/03/2016 from [facility]. FINDINGS: NONCONTRAST ABDOMEN: Normal kidneys. Mild dilation of the right ureter, unchanged, and no evidence of a distal calculus. CONTRAST ABDOMEN: Small bibasilar of patchy densities suggestive of pneumonitis. Heart size is normal. Liver measures 22 cm and spleen 14.6 cm. The gallbladder, pancreas and adrenal glands are normal. Normal enhancement and excretion of the kidneys. No evidence of a mass or hydronephrosis. Mild dilation of the distal right ureter without evidence of obstruction. Mild atherosclerosis of the aorta. Nonspecific bowel gas pattern. NONCONTRAST PELVIS: Ferrara catheter in place with interval progression of the slightly hyperdense bladder mass since CT scan 11/12/2016. CONTRAST PELVIS: 3.2 x 3.6 cm irregular bladder mass (previously 3.1 x 1.8 cm) arising from the right bladder wall with some thickening of the underline bladder wall. New surgical clips below the aortic bifurcation. There is small iliac and inguinal lymph nodes. Occasional sigmoid diverticula. Mild degenerative changes of the spine. IMPRESSION: 1. 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 2. Hepatosplenomegaly 3. Ferrara catheter in place 4. New surgical clips inferior to the aortic bifurcation 5. Small bibasilar patchy densities suggestive of pneumonitis All CT scans at this facility use dose modulation, iterative reconstruction, and/or weight-based dosing when appropriate to reduce radiation dose to as low as reasonably achievable.
== END 2017-01-08 23:00 | disposition home or self-care (01) ==
LOC: CT SRH 10:36
DX: D49.4 Neoplasm of unspecified behavior of bladder (principal); R16.2 Hepatomegaly with splenomegaly, not elsewhere classified